=== PATIENT | female | born 1970 | race Caucasian/White ===

== ENCOUNTER 2018-10-10 04:14 | Inpatient (IN) | payer OTHER ==
[~2018-10-10] VITALS: Ht 160 cm; Wt 74.8 kg
--- OUTSIDE RECORDS SUMMARY | 2018-10-10 04:17 | XMS REPORT ---
Author Author [facility] Address Unknown Phone Unavailable Care Team Providers Care Tier In Name Role Phone Unavailable Unavailable Payers Payer Name Policy Type Policy Number Effective Date Expiration Date Problems This patient has no known problems. Allergies, Adverse Reactions, Alerts Allergy Name Allergy Type Status Severity Reaction(s) Onset Date Inactive Date Treating Clinician Comments No Known Allergies DA Active U 2018-07-06 00:00:00 Medications This patient has no known medications. Results Test Description Test Time Test Comments Text Results Atomic Results Result Comments GLUBED 2018-07-08 11:35:00 GLUBED (test code=GLUBED) 96 mg/dL 74-106 Performed by certified emergency operator at [facility] [id number] 08:46:00* Test Item Value Reference Range Comments GLUBED (test code=GLUBED) 223 mg/dL 74-106 Performed by certified emergency operator at [facility] [id number] 20:41:00* Test Item Value Reference Range Comments GLUBED (test code=GLUBED) 113 mg/dL 74-106 Performed by certified emergency operator at [facility] [id number] 17:12:00* Test Item Value Reference Range Comments GLUBED (test code=GLUBED) 241 mg/dL 74-106 Performed by certified emergency operator at [facility] [id number] 11:29:00* Test Item Value Reference Range Comments GLUBED (test code=GLUBED) 72 mg/dL 74-106 Performed by certified emergency operator at [facility] - XR ABDOMEN [id number] 09:24:00 FAX: Kimberly Hyatt MD [phone] [place]: B St: ADM FAX: Savage Lemons MD Name: KORI PALACIOS [facility] : 1970 Age/S: 48/F [address] [facility] Unit #: [id number] Loc: V[address] [place] [address] Phys: Layo Wheatley MD Acct: [id number] Dis Date: Status: ADM IN PHONE #: [phone] Exam Date: 07/07/2018910 FAX #: [phone] Reason: small bowel obstruction EXAMS: CPT CODE: [id number] XR ABDOMEN 2V 94770 HISTORY: Small bowel obstruction. COMPARISON: CT a bdomen and pelvis from previous day. Moderate distention of the sm all bowel loops in the upper abdomen. Air is noted in the colon. These fin dings suggest improving partial or incomplete obstruction. Phleboliths. IMPRESSION: Decreasing distention of the small b owel may suggest improving partial or incomplete small bowel obstruction . Follow-up. Electronically Signed by Alva Davenport on 9 at 0924 Reported and signed by: Tin Davenport M.D. CC: Kimberly Saldaña; Savage Lemons MD Technologist: Nicole Malagon RT(R) Trnscrd Date/Time/By: 07/07/2018 (923) : By: [email or web address] Orig Print D/T: S: 03/2019 (926) PAGE 1 Signed Repo rt [id number] 08:55:00* Test Item Value Reference Range Comments GLYCOSYLATED HEMOGLOBIN (HA1C) (test code=GLYHGB) 13.8 % HbA1 4.8-6.0 ESTIMATED AVERAGE GLUCOSE (test code=EAG) 349 MG/DL BASIC METABOLIC [id number] 08:26:00* Test Item Value Reference Range Comments SODIUM (test code=NA) 139 mmol/L 136-145 POTASSIUM (test code=K) 4.0 mmol/L 3.5-5.1 CHLORIDE (test code=CL) 111.0 mmol/L 98-107 CARBON DIOXIDE (test code=CO2) 21.0 mmol/L 21-32 ANION GAP (test code=GAP) 11.0 10-20 GLUCOSE (test code=GLU) 183 mg/dL 74-106 BLOOD UREA NITROGEN (test code=BUN) 5 mg/dL 7-18 GLOMERULAR FILTRATION RATE (test code=GFR) > 60 mL/min >=60 Estimated GFR by using Modified MDRD formula.Chronic kidney disease is defined as either kidney damageor GFR <60 mL/min/1.73 m2 for >3 months. CREATININE (test code=CREAT) 0.50 mg/dL 0.55-1.02 Note change in reference range due to change in reagent. BUN/CREATININE RATIO (test code=BUN/CREA) 10.0 10-20 CALCIUM (test code=CA) 8.0 mg/dL 8.5-10.1 [id number] 08:26:00* Test Item Value Reference Range Comments MAGNESIUM (test code=MAG) 1.6 mg/dL 1.8-2.4 CBC W/AUTO [id number] 08:14:00* Test Item Value Reference Range Comments WHITE BLOOD CELL (test code=WBC) 6.5 K/mm3 4.5-12.5 RED BLOOD CELL (test code=RBC) 3.95 mill/mm3 3.7-5.2 HEMOGLOBIN (test code=HGB) 11.6 gram/dL 11.5-15.5 RESULT VERIFIED BY REPEAT ANALYSIS HEMATOCRIT (test code=HCT) 35.4 % 36.0-46.0 MEAN CELL VOLUME (test code=MCV) 89.6 fL 80-98 MEAN CELL HGB (test code=MCH) 29.4 picogram 27.0-33.0 MEAN CELL HGB CONCETRATION (test code=MCHC) 32.8 gram/dL 33.0-36.0 RED CELL DISTRIBUTION WIDTH (test code=RDW) 11.8 % 11.6-16.2 RED CELL DISTRIBUTION WIDTH SD (test code=RDW-SD) 38.4 fL 37.0-51.0 PLATELET COUNT (test code=PLT) 289 K/mm3 150-450 MEAN PLATELET VOLUME (test code=MPV) 11.3 fL 6.7-11.0 NEUTROPHIL % (test code=NT%) 37.5 % 39.0-69.0 IMMATURE GRANULOCYTE % (test code=IG%) 0.6 % 0.0-5.0 LYMPHOCYTE % (test code=LY%) 50.9 % 25.0-55.0 MONOCYTE % (test code=MO%) 7.6 % 0.0-10.0 EOSINOPHIL % (test code=EO%) 2.5 % 0.0-5.0 BASOPHIL % (test code=BA%) 0.9 % 0.0-1.0 NUCLEATED RBC % (test code=NRBC%) 0.0 % 0-0 NEUTROPHIL # (test code=NT#) 2.43 K/mm3 1.8-7.7 IMMATURE GRANULOCYTE # (test code=IG#) 0.04 x10 3/uL 0-0.03 LYMPHOCYTE # (test code=LY#) 3.30 K/mm3 1.0-5.0 MONOCYTE # (test code=MO#) 0.49 K/mm3 0-0.8 EOSINOPHIL # (test code=EO#) 0.16 K/mm3 0.0-0.5 BASOPHIL # (test code=BA#) 0.06 K/mm3 0.0-0.2 NUCLEATED RBC # (test code=NRBC#) 0.00 K/mm3 0.0-0.1 MANUAL DIFF REQUIRED (test code=MDIFF) NO [id number] 07:50:00* Test Item Value Reference Range Comments GLUBED (test code=GLUBED) 224 mg/dL 74-106 Performed by certified emergency operator at [facility] [id number] 21:15:00* Test Item Value Reference Range Comments GLUBED (test code=GLUBED) 270 mg/dL 74-106 Performed by certified emergency operator at [facility] [id number] 16:06:00* Test Item Value Reference Range Comments GLUBED (test code=GLUBED) 132 mg/dL 74-106 Performed by certified emergency operator at [facility] URINALYSIS [id number] 11:21:00* Test Item Value Reference Range Comments UA COLOR (test code=COLU) STRAW YELLOW UA APPEARANCE (test code=APPU) CLEAR CLEAR UA GLUCOSE DIPSTICK (test code=DGLUU) 1000(3+) mg/dL NEGATIVE UA BILIRUBIN DIPSTICK (test code=BILU) NEGATIVE mg/dL NEGATIVE UA KETONE DIPSTICK (test code=KETU) neg mg/dL NEGATIVE UA SPECIFIC GRAVITY (test code=SGU) 1.005 1.001-1.035 UA BLOOD DIPSTICK (test code=SELINA) neg Ravi/uL NEGATIVE UA PH DIPSTICK (test code=CARLOS) 5.0 5.0-8.0 UA PROTEIN DIPSTICK (test code=PROU) neg mg/dL Neg-15 UA UROBILINIOGEN DIPSTICK (test code=URO) norm mg/dL 0.0-0.2 UA NITRITE DIPSTICK (test code=JENNIFER) NEGATIVE NEGATIVE UA LEUKOCYTE ESTERASE DIPSTICK (test code=LEUU) 25 (Trace) uL NEGATIVE UA WBC (test code=WBCU) 3-5 per HPF 0-5 IN SOME URINARY TRACT INFECTIONS THERE MAY NOT BE ENOUGHWBCs IN THE URINE TO TRIGGER AN AUTOMATIC (REFLEX) URINECULTURE. A SEPERATE ORDER FOR URINE CULTURE IS RECOMMENDEDIF THERE IS STRONG SUPPORT FOR A URINARY TRACT INFECTIONCLINICALLY. UA RBC (test code=RBCU) 0-3 per HPF 0-5 UA EPITHELIAL CELLS (test code=EPIU) FEW per HPF Few UA BACTERIA (test code=BACU) FEW per HPF NONE Urine Source? Clean CatchUR HCG [id number] 11:21:00* Test Item Value Reference Range Comments UR HCG QUAL (test code=HCGQLU) NEGATIVE This HCGQL test is NOT applicable for MALE patients.Check with nurse about probable order error.If Tumor Marker Test needed, nurse should order test "HCGTU"(Test #550.05161) Urine Source? Clean CatchURINALYSIS [id number] 11:13:00* Test Item Value Reference Range Comments UA COLOR (test code=COLU) STRAW YELLOW UA APPEARANCE (test code=APPU) CLEAR CLEAR UA GLUCOSE DIPSTICK (test code=DGLUU) 1000(3+) mg/dL NEGATIVE UA BILIRUBIN DIPSTICK (test code=BILU) NEGATIVE mg/dL NEGATIVE UA KETONE DIPSTICK (test code=KETU) neg mg/dL NEGATIVE UA SPECIFIC GRAVITY (test code=SGU) 1.005 1.001-1.035 UA BLOOD DIPSTICK (test code=SELINA) neg Ravi/uL NEGATIVE UA PH DIPSTICK (test code=CARLOS) 5.0 5.0-8.0 UA PROTEIN DIPSTICK (test code=PROU) neg mg/dL Neg-15 UA UROBILINIOGEN DIPSTICK (test code=URO) norm mg/dL 0.0-0.2 UA NITRITE DIPSTICK (test code=JENNIFER) NEGATIVE NEGATIVE UA LEUKOCYTE ESTERASE DIPSTICK (test code=LEUU) 25 (Trace) uL NEGATIVE UA WBC (test code=WBCU) per HPF 0-5 Urine Source? Clean CatchUR HCG [id number] 11:13:00* Test Item Value Reference Range Comments UR HCG QUAL (test code=HCGQLU) NEGATIVE This HCGQL test is NOT applicable for MALE patients.Check with nurse about probable order error.If Tumor Marker Test needed, nurse should order test "HCGTU"(Test #550.91823) Urine Source? Clean CatchURINALYSIS [id number] 11:10:00* Test Item Value Reference Range Comments UA COLOR (test code=COLU) STRAW YELLOW UA APPEARANCE (test code=APPU) CLEAR CLEAR UA GLUCOSE DIPSTICK (test code=DGLUU) 1000(3+) mg/dL NEGATIVE UA BILIRUBIN DIPSTICK (test code=BILU) NEGATIVE mg/dL NEGATIVE UA KETONE DIPSTICK (test code=KETU) neg mg/dL NEGATIVE UA SPECIFIC GRAVITY (test code=SGU) 1.005 1.001-1.035 UA BLOOD DIPSTICK (test code=SELINA) neg Ravi/uL NEGATIVE UA PH DIPSTICK (test code=CARLOS) 5.0 5.0-8.0 UA PROTEIN DIPSTICK (test code=PROU) neg mg/dL Neg-15 UA UROBILINIOGEN DIPSTICK (test code=URO) norm mg/dL 0.0-0.2 UA NITRITE DIPSTICK (test code=JENNIFER) NEGATIVE NEGATIVE UA LEUKOCYTE ESTERASE DIPSTICK (test code=LEUU) 25 (Trace) uL NEGATIVE UA WBC (test code=WBCU) per HPF 0-5 Urine Source? Clean CatchUR HCG [id number] 11:10:00* Test Item Value Reference Range Comments UR HCG QUAL (test code=HCGQLU) Urine Source? Clean Catch- CT ABD PELVIS [id number] 10:22:00 Name: PALACIOSKORI HAGEN [facility] : 1970 Age/S: 48 / F [address] [facility] Unit #: [id number] Loc: [place] [address] Phys: Jamie Gibbs MD Acct: [id number] Di s Date: Status: REG ER PHONE #: [phone] Exam Date: 07/06/2018 1015 FAX #: Reason: LLQ pain EXAMS: CPT CODE: [id number] CT ABD PELVIS W/CONT 22988 HISTORY: Left lower quadr ant pain. COMPARISON: None available. CT abdomen and pelvis with IV contrast: 100 mL of Isovue 370. Automated exposure control. CT abdomen: The lung bases are clear. The liver is enhancing homogeneously. Gallbladder is without radiopaque stones. Unremarkable spleen and the stomach distends incompletely however it is normal in appearance. Pancreas enhances homoge neously. Unremarkable adrenals. Kidneys are free from hydrouretero nephrosis. Heterogeneous enhancement may suggest pyelonephritis, greater o n the right. Bilateral excretion. No perinephric collections. No pathologic adenopathy. Well-opacified abdominal and pelvic vasculatur e. Mild atherosclerotic change. Moderate distention of the small b owel with fluid and air. Zone of transition in the distal jejunum best dem onstrated on image #42 on the early phase towards the right of the midline . Decompressed ileum. Fluid-filled large bowel as well. No inflammatory ch shauna. CT PELVIS: The appendix is normal. Pelvic bessie l loops are again demonstrating fluid distention of the small bowel. The t erminal and distal ileum is collapsed. No mass noted in the zone transitio n. These findings may suggest partial or incomplete distal small bowel obs truction. Unremarkable well-distended urinary bladder. The uterus is within normal limits. Ovaries are poorly visible. No free fluid or free air or abscess. No pelvic pathologic adenopathy. Subcutaneo us tissues and the musculature posterior mild inflammatory change along th e anterior right lower abdominal wall just cranial to the level of the umb ilicus. Correlate for cellulitis. No drainable PAGE 1 Signed Report (CONTINUED) Name: PHILIPKORI Emilio [facility] : 1970 Age/S: 48 / F [address] [facility] Unit #: [id number] Loc: [place] [address] Phys: Antoni Gibbs MD Acct: [id number] Dis Date: Status: REG ER PHONE #: [phone] Exam Date: 019 1015 FAX #: [phone] Reason: LLQ pain EXAMS: CPT CODE: [id number] CT ABD PELVIS W/CONT 47511 <Continued> abscess identified. No lytic or blastic lesions are noted within the bony skeleton. DJD. IMPRESSION: Moderate distention of the proximal small bowel with air-fluid level with zone of transition within the distal ileum and proximal jejunum best demonstrated on image 42 of the early sequence towards the right of the midline. No mass is noted. These findings may suggest partial or incomplete small bowel obstruction. Fluid distention of the large bowel with no inflammation. No zone of transition within the large bowel. Appendix is normal. No free fluid or free air or abscess. Heterogeneous enhancement of the kidneys may suggest pyelonephritis. Correlate with urinalysis. Bilateral excretion is noted. The urinary bladder is unremarkable. No pathologic adenopathy. Mild cellulitis suspected along the anterior right lower abdominal wall just cranial to the level of the umbilicus. at 1022 Reported and signed by: Tin Davenport M.D. CC: Antoni Gibbs MD Technologist:Aisha Garibay CTDI: DLP: Trnscb Date/Time: 07/06/2018 (0415) [email or web address] Orig Print D/T: S: 07/06/2018 (2162) CTDI: DLP: PAGE 2 Signed Report COMPREHENSIVE METABOLIC [id number] 09:44:00* Test Item Value Reference Range Comments SODIUM (test code=NA) 135 mmol/L 135-148 POTASSIUM (test code=K) 4.9 mmol/L 3.5-5.1 CHLORIDE (test code=CL) 104 mmol/L 101-109 CARBON DIOXIDE (test code=CO2) 20.5 mmol/L 21-32 ANION GAP (test code=GAP) 15 mmol/L 10-20 GLUCOSE (test code=GLU) 398 mg/dL 74-106 BLOOD UREA NITROGEN (test code=BUN) 13 mg/dL 3-21 CREATININE (test code=CREAT) 0.73 mg/dL 0.55-1.3 BUN/CREATININE RATIO (test code=BUN/CREA) 17.8 10-20 TOTAL PROTEIN (test code=PROT) 6.7 g/dL 6.5-8.4 ALBUMIN (test code=ALB) 3.2 g/dL 3.4-4.8 GLOBULIN (test code=GLOB) 3.5 G/DL 1-10 ALBUMIN/GLOBULIN RATIO (test code=A/G) 0.9 RATIO 0.75-1.50 CALCIUM (test code=CA) 8.6 mg/dL 8.4-10.2 BILIRUBIN TOTAL (test code=BILT) 0.40 mg/dL 0.0-1.0 SGOT/AST (test code=AST) 14 U/L 6-32 SGPT/ALT (test code=ALT) 24 U/L 12-78 Note: Change in REFERENCE RANGE due to new reagent method. ALKALINE PHOSPHATASE TOTAL (test code=ALKP) 88 U/L 38-126 [id number] 09:44:00* Test Item Value Reference Range Comments LIPASE (test code=LIP) 252 U/L 128-270 CBC W/AUTO [id number] 09:27:00* Test Item Value Reference Range Comments WHITE BLOOD CELL (test code=WBC) 10.8 K/mm3 4.5-12.5 RED BLOOD CELL (test code=RBC) 4.60 mill/mm3 3.7-5.2 HEMOGLOBIN (test code=HGB) 13.6 gram/dL 11.5-15.5 HEMATOCRIT (test code=HCT) 41.0 % 36.0-46.0 MEAN CELL VOLUME (test code=MCV) 89.1 fL 80-98 MEAN CELL HGB (test code=MCH) 29.6 picogram 27.0-33.0 MEAN CELL HGB CONCETRATION (test code=MCHC) 33.2 gram/dL 33.0-36.0 RED CELL DISTRIBUTION WIDTH (test code=RDW) 12.2 % 11.6-16.2 RED CELL DISTRIBUTION WIDTH SD (test code=RDW-SD) 38.9 fL 39.1-52.0 PLATELET COUNT (test code=PLT) 312 K/mm3 150-450 MEAN PLATELET VOLUME (test code=MPV) 10.7 fL 6.7-11.0 NEUTROPHIL % (test code=NT%) 61.6 % 39.0-69.0 LYMPHOCYTE % (test code=LY%) 28.9 % 25.0-55.0 MONOCYTE % (test code=MO%) 7.5 % 0.0-10.0 EOSINOPHIL % (test code=EO%) 1.4 % 0.0-5.0 BASOPHIL % (test code=BA%) 0.6 % 0.0-1.0 NEUTROPHIL # (test code=NT#) 6.64 K/mm3 1.8-7.7 LYMPHOCYTE # (test code=LY#) 3.11 K/mm3 1.0-5.0 MONOCYTE # (test code=MO#) 0.81 K/mm3 0-0.8 EOSINOPHIL # (test code=EO#) 0.15 K/mm3 0.0-0.5 BASOPHIL # (test code=BA#) 0.06 K/mm3 0.0-0.2 MANUAL DIFF REQUIRED (test code=MDIFF) NO
[2018-10-10 04:26] LABS: BASOPHILS # (AUTO) 0.1 (0.0-0.1); BASOPHILS % 0.6 % (0.0-1.0); EOSINOPHILS # (AUTO) 0.2 (0.0-0.4); EOSINOPHILS % 1.7 % (0.0-6.0); HEMATOCRIT 36.9 % (34.2-44.1); HEMOGLOBIN 12.4 g/dL (12.0-16.0); LYMPHOCYTES # (AUTO) 3.1 (1.0-3.2); LYMPHOCYTES % 22.3 % (18.0-39.1); MEAN CORPUSCULAR HEMOGLOBIN 29.5 pg (28-32); MEAN CORPUSCULAR HGB CONC 33.6 g/dL (31-35); MEAN CORPUSCULAR VOLUME 87.9 fL (81-99); MONOCYTES # (AUTO) 0.8 (0.2-0.8); MONOCYTES % 5.8 % (4.4-11.3); NEUTROPHILS # (AUTO) 9.6 (2.1-6.9); NEUTROPHILS % 68.8 % (38.7-80.0); PLATELET COUNT 357 x10e3/uL (140-360); RED CELL DISTRIBUTION WIDTH 12.8 % (11.7-14.4)
--- NOTE | 2018-10-10 04:37 | NUR ---
PT AMBULATED TO RESTROOM, WHEN BACK TO ROOM SPO2 WAS 85%, PLACED ON 2L NC, SPO2 UP TO 98%. MD STEVEN
[2018-10-10 04:46] LABS: INR 0.77; PROTHROMBIN TIME 11.2 seconds (11.9-14.5)
[2018-10-10 04:47] LABS: PARTIAL THROMBOPLASTIN TIME 22.5 seconds (23.8-35.5)
[2018-10-10 04:49] LABS: ALANINE AMINOTRANSFERASE 22 IU/L (0-55); ALBUMIN 3.2 g/dL (3.5-5.0); ALKALINE PHOSPHATASE 72 IU/L (40-150); ANION GAP 14.1 mmol/L (8-16); BLOOD UREA NITROGEN 12 mg/dL (7-26); BUN/CREATININE RATIO 16 (6-25); CALCIUM 9.9 mg/dL (8.4-10.2); CARBON DIOXIDE 26 mmol/L (22-29); CHLORIDE 102 mmol/L (98-107); CREATINE KINASE 39 IU/L (29-168); CREATININE, SERUM 0.76 mg/dL (0.57-1.11); EST GLOMERULAR FILTRATION RATE > 60 ML/MIN (60-); GLUCOSE 270 mg/dL (74-118); POTASSIUM 4.1 mmol/L (3.5-5.1); SODIUM 138 mmol/L (136-145)
[2018-10-10 04:56] LABS: CREATINE KINASE MB < 1.00 ng/mL (0-4.3)
--- NOTE | 2018-10-10 04:56 | Diagnostic Imaging Report ---
EXAMINATION: CHEST SINGLE (PORTABLE) INDICATION: SOB, HURTS TO BREATH COMPARISON: None FINDINGS: TUBES and LINES: None. LUNGS: Lungs are not well inflated. Mild perihilar, peribronchial thickening and perihilar streaky densities may reflect viral infection versus reactive airway disease. However, pulmonary venous congestion and early edema can have this appearance in the proper clinical setting. PLEURA: No pleural effusion or pneumothorax. HEART AND MEDIASTINUM: The cardiomediastinal silhouette is unremarkable. BONES AND SOFT TISSUES: No acute osseous lesion. Soft tissues are unremarkable. UPPER ABDOMEN: No free air under the diaphragm. IMPRESSION: Findings may reflect a viral infection versus reactive airway disease. However, pulmonary venous congestion and early edema can have this appearance in the proper clinical setting. Signed by: Dr. Didi Orosco M.D. on 10/10/2018 4:53 AM
[2018-10-10 05:15] LABS: CLARITY,URINE CLEAR (CLEAR); COLOR,URINE YELLOW (YELLOW); LEUKOCYTE ESTERASE ,URINE NEGATIVE (NEGATIVE); NITRITE,URINE NEGATIVE (NEGATIVE); PROTEIN,URINE DIPSTICK NEGATIVE (NEGATIVE)
[2018-10-10 05:16] LABS: KETONES,URINE NEGATIVE (NEGATIVE)
[2018-10-10 05:17] LABS: AMPHETAMINES SCREEN,URINE NEGATIVE (NEGATIVE); BENZODIAZEPINES SCREEN,URINE NEGATIVE (NEGATIVE); BILIRUBIN,URINE NEGATIVE (NEGATIVE); PHENCYCLIDINE SCREEN,URINE NEGATIVE (NEGATIVE); URINE UROBILINOGEN 0.2 mg/dL (0.2 - 1)
[2018-10-10 05:29] LABS: BACTERIA,URINE FEW /HPF
[2018-10-10 05:30] LABS: EPITHELIAL CELLS,URINE MANY /LPF
[2018-10-10] MEDS ORDERED: SODIUM CHLORIDE 0.9% 50ML 50 ML ONE (05:31)
[2018-10-10] MEDS ORDERED: IOPAMIDOL 370 MG/ML 200 ML INFUS..BTL INJ ONE (05:31)
--- NOTE | 2018-10-10 06:18 | Diagnostic Imaging Report ---
EXAM: CT Chest WITH contrast 10/10/2018 4:36 AM INDICATION: Pulmonary embolism. Shortness of breath and chest pain. COMPARISON: None TECHNIQUE: Chest was scanned utilizing a multidetector helical scanner from the lung apex through the level of the adrenal glands without administration of IV contrast. Coronal and sagittal reformations were obtained. Pulmonary embolism protocol was performed. IV CONTRAST: 100 cc Isovue 370 RADIATION DOSE: Total DLP: 494.64 mGy*cm Estimated effective dose: (DLP x 0.014 x size factor) mSv COMPLICATIONS: None FINDINGS: LINES/ TUBES: None. LUNGS AND AIRWAYS: No filling defects within the pulmonary arteries to the resolved segmental level. There is diffuse thickening of the pulmonary interstitium, sutured with patchy groundglass densities, particularly in the lower lobes. There is also prominence of the pulmonary interstitium. PLEURA: Bilateral small pleural effusions, left greater than right. HEART AND MEDIASTINUM: The thyroid gland is normal. Prominent lower mediastinal lymph nodes may be reactive. Mildly prominent bilateral axillary lymph nodes, however, not significantly enlarged by CT criteria.. There is soft tissue attenuation in the subcarinal region, anterior to the esophagus which may reflect esophageal thickening, or enlarged subcarinal lymph nodes. There is also increased lymph tissue in the bilateral hilar region. The heart is normal in size.. There is no pericardial effusion. UPPER ABDOMEN: Limited non-contrast views of the upper abdomen show no abnormality within the visualized liver, spleen, pancreas, or kidneys. The adrenal glands are normal. BONES: The visualized bony thorax is within normal limits. SOFT TISSUES: Unremarkable. IMPRESSION: 1. Findings consistent with pulmonary venous congestion and interstitial edema in the proper clinical setting. Bilateral small pleural effusions. 2. No pulmonary embolism. 3. Mediastinal lymphadenopathy may be reactive. Recommend follow-up to document resolution. Signed by: Dr. Didi Orosco M.D. on 10/10/2018 6:14 AM
[2018-10-10] MEDS ORDERED: VITAMIN D250000 UNIT PO (06:34)
[2018-10-10] MEDS ORDERED: HUMALOG100 UNIT/3 (06:34)
[2018-10-10] MEDS ORDERED: LANTUS 3ML100 UNITS/ SC (06:34)
[2018-10-10] MEDS ORDERED: LYRICA150 MG PO (06:34)
[2018-10-10] MEDS ORDERED: FUROSEMIDE INJ 10 MG/ML 4 ML VIAL IV ONE (06:45)
[2018-10-10] MEDS ORDERED: DEXTROSE 50% SYRINGE 50 ML IV PRN (06:45)
--- NOTE | 2018-10-10 06:54 | NUR ---
report to usha fish
[2018-10-10] MEDS: AZITHROMYCIN 500MG/NS 250 ML 250 ML IV SCH (07:21)
[2018-10-10] MEDS: INSULIN REGULAR, HUMAN 100 UNIT/1 ML 3ML VIAL SQ SCH ×4 (07:33→22:18)
--- NOTE | 2018-10-10 07:48 | NUR ---
RCD PT FROM ER BY WHEEL CHAIR PT IS ALERT AND ORIENTED PT RESTING ON BED NO SIGNS OF ANY DISTRESS NOTED VITALS CHECKED ADMISSION ASSESSMENT DONE PT ON O2 4L BY NC PT C/O COUGH AND CHEST DISCOMFORT PT HAD BOWEL MOVEMENT AND VOIDED ,IV PATENT BY SALINE FLUSH INSTRUCTED PT REGARDING HOSPITAL POLICY AND ROUTINE BED LOW AND LOCKED CALL LIGHT IN REACH
[2018-10-10] MEDS ORDERED: FUROSEMIDE INJ 10 MG/ML 4 ML VIAL IV SCH (09:00)
[2018-10-10] MEDS ORDERED: FUROSEMIDE INJ 10 MG/ML 2 ML VIAL IV SCH (09:00)
[2018-10-10 10:17] VITALS: BP 126/65
[2018-10-10 10:27] VITALS: BP 126/65
[2018-10-10 11:42] VITALS: BP 118/63
[2018-10-10] MEDS: CEFTRIAXONE SOD 1 GM/NS 50 ML 50 ML IV SCH (12:00)
[2018-10-10] MEDS: VANCOMYCIN 500MG/NS 0.9% 100ML 100 ML IV SCH (12:00)
[2018-10-10 13:20] LABS: CREATINE KINASE MB 1.2 ng/mL (0-5.0)
[2018-10-10] MEDS ORDERED: MAGNESIUM/ALUMINUM/SIMETHICONE 30 ML UDC PO PRN (13:45)
[2018-10-10] MEDS ORDERED: MAGNESIUM HYDROXIDE 30 ML UDC PO PRN (13:45)
[2018-10-10] MEDS ORDERED: ACETAMINOPHEN 325 MG TAB PO PRN (13:45)
[2018-10-10 16:58] VITALS: BP 125/69
--- NOTE | 2018-10-10 19:19 | NUR ---
PT RESTING ON BED BED SIDE REPORT GIVEN TO ONCOMING NURSE
--- NOTE | 2018-10-10 19:29 | Consultation ---
DATE OF CONSULTATION: 10/10/2018 Pulmonary Consultation HISTORY OF PRESENT ILLNESS: The patient is seen many years ago, apparently followed by Dr. Roca for an empyema requiring decortication by Dr. Roca. She has had a cough, had a low-grade fever of 99.4. History of meningitis at age 15, history of diabetes at age 24. ALLERGIES: NO KNOWN ALLERGIES. MEDICATIONS: Include Lyrica and insulin. SOCIAL HISTORY: Works as an cobol engineer. Nonsmoker. No alcohol use. PAST SURGICAL HISTORY: She has had decortication, meniscectomies both knees, uterine ablation. FAMILY HISTORY: Positive for coronary disease. PHYSICAL EXAMINATION: GENERAL: She is a well-developed white female, in no acute distress. VITAL SIGNS: Temperature 99.4, pulse 114, blood pressure 118/80. HEAD: Normocephalic, atraumatic. EYES: Extraocular movements intact. LUNGS: Few rales. HEART: Regular rhythm. ABDOMEN: Nontender. EXTREMITIES: Nonedematous. IMPRESSION: Community-acquired pneumonia and a history of diabetes with broad-spectrum antibiotics pending results of culture. In view of her history of meningitis and recurrent pneumonias, would consider Thank you for this kind referral. MD CINDY Reyna/MODL /[id number]
[2018-10-10 20:00] VITALS: BP 134/74
--- NOTE | 2018-10-10 20:56 | NUR ---
Patient states neuropathy, Dr. NABILA arellano.
[2018-10-10 21:00] VITALS: BP 134/74
[2018-10-10] MEDS ORDERED: INSULIN GLARGINE 100 UNITS/ML VIAL SQ SCH (21:00)
--- NOTE | 2018-10-10 21:14 | NUR ---
Dr. Gilbert paged again for patients concerns.
--- NOTE | 2018-10-10 21:20 | NUR ---
Got an order for neurotin 300mg one time.
[2018-10-10] MEDS ORDERED: GABAPENTIN 300 MG CAP PO STA (21:27)
--- NOTE | 2018-10-10 21:29 | Consultation ---
DATE OF CONSULTATION: 10/10/2018 CARDIOLOGY CONSULTATION REASON FOR CONSULTATION: Ms. Brennan is a pleasant 48-year-old white woman with a complex past medical history, who presented to the emergency room overnight with a complaint of shortness of breath. HISTORY OF PRESENT ILLNESS: The patient reports she ran out of her blood pressure medicine a week ago and has been without the lisinopril 20 mg daily. She thinks her blood pressure been a little bit elevated, but overnight she felt herself being short of breath, pressure in her chest, and a little cough and wheezing by her count. PAST MEDICAL HISTORY: Significant for recurring pulmonary problems. She is not certain of any diagnosis, but has been hospitalized for pneumonia twice since she developed an empyema in her chest in 2013 requiring surgical drainage. She has hypertension and she was first diagnosed with type 2 adult onset diabetes at about age 24. She has difficulty telling me all of her medications, but uses Humalog and ran out of the lisinopril 20 mg daily. She reports she did take a water pill sometime in the past, but cannot remember the name, it has not been recently. PERSONAL AND SOCIAL HISTORY: She reports she has never smoked. FAMILY HISTORY: Father had coronary artery disease, treated with coronary bypass graft surgery. REVIEW OF SYSTEMS: CARDIAC: She has never known of any cardiac problem and never been told of any murmur. PHYSICAL EXAMINATION: GENERAL: At this time shows a pleasant woman, who is alert and responsive and talkative. VITAL SIGNS: Blood pressure 118/63, temperature 99.4, and pulse 114. HEAD, EYES, EARS, NOSE, AND THROAT: Unremarkable. NECK: No jugular venous distention. No bruits. THORAX: Heart sounds S1, S2 are equal, slightly rapid, but no murmurs. LUNGS: Relatively clear. There is a healed intercostal incision on the right mid back. ABDOMEN: Protuberant. Normal bowel sounds. EXTREMITIES: No cyanosis, clubbing, or edema. RADIOGRAPHIC DATA: EKG shows sinus tachycardia, cannot rule out anterior scar, however, echocardiogram shows normal left ventricular function, EF 50% to 55% with mild mitral regurgitation. LABORATORY STUDIES: Pertinent laboratory studies on the chart showed glucose 270 and white count 13.8. ASSESSMENTS: 1. Dyspnea may be multifactorial. 2. Pulmonary disease with recurring pneumonias. 3. History of hypertension without any medications for the past week. 4. Type 2 adult onset diabetes. 5. Congestive heart failure with elevated BNP of 176, but echocardiogram showing normal left ventricular function and mild mitral regurgitation. PLAN: We will monitor with you. Watch her blood pressure and volume status. We will plan for her to have Cardiolite on Friday. Thank you for asking me to see her in consultation. MD EDILBERTO Venegas/MODL /[id number] cc: Layo Kamara MD
[2018-10-10] MEDS: FUROSEMIDE INJ 10 MG/ML 4 ML VIAL IV SCH (21:54)
[2018-10-10] MEDS: HEPARIN SOD (PORCINE) 5,000 UNIT/ML VIAL SC SCH (22:04)
[2018-10-11] VITALS (7 sets, daily range): BP systolic 112–147; BP diastolic 60–87
--- NOTE | 2018-10-11 06:28 | Diagnostic Imaging Report ---
EXAMINATION: CHEST SINGLE (PORTABLE) INDICATION: . Bilateral pleural effusions. COMPARISON: . FINDINGS: TUBES and LINES: None. LUNGS: Lungs are not well inflated. There has been some interval decrease in previously present bilateral patchy airspace disease PLEURA: No pneumothorax. Bilateral small pleural effusions. HEART AND MEDIASTINUM: The cardiomediastinal silhouette is unremarkable. BONES AND SOFT TISSUES: No acute osseous lesion. UPPER ABDOMEN: No free air under the diaphragm. IMPRESSION: Some interval decrease in previously present bilateral patchy airspace disease possibly improved pulmonary edema/venous congestion. Recommend continued follow-up to resolution. Signed by: Dr. Didi Orosco M.D. on 10/11/2018 6:25 AM
[2018-10-11 06:48] LABS: BASOPHILS # (AUTO) 0.1 (0.0-0.1); BASOPHILS % 0.5 % (0.0-1.0); EOSINOPHILS # (AUTO) 0.2 (0.0-0.4); HEMATOCRIT 38.7 % (34.2-44.1); HEMOGLOBIN 12.8 g/dL (12.0-16.0); LYMPHOCYTES # (AUTO) 2.7 (1.0-3.2); LYMPHOCYTES % 28.9 % (18.0-39.1); MEAN CORPUSCULAR HEMOGLOBIN 29.1 pg (28-32); MEAN CORPUSCULAR HGB CONC 33.1 g/dL (31-35); MONOCYTES # (AUTO) 0.7 (0.2-0.8); MONOCYTES % 7.3 % (4.4-11.3); NEUTROPHILS # (AUTO) 5.6 (2.1-6.9); NEUTROPHILS % 60.8 % (38.7-80.0); PLATELET COUNT 339 x10e3/uL (140-360); RED CELL DISTRIBUTION WIDTH 12.5 % (11.7-14.4)
--- NOTE | 2018-10-11 07:05 | NUR ---
RCD PT AT BED PT IS ALERT AND RESTING ON BED NO SIGNS PF ANY DISTRESS NOTED IV PATENT BED LOW AND LOCKED CALL LIGHT IN REACH
[2018-10-11 07:07] LABS: ALANINE AMINOTRANSFERASE 17 IU/L (0-55); ALBUMIN 3.1 g/dL (3.5-5.0); ALBUMIN/GLOBULIN RATIO 0.9 (0.8-2.0); ALKALINE PHOSPHATASE 57 IU/L (40-150); ANION GAP 13.7 mmol/L (8-16); BLOOD UREA NITROGEN 10 mg/dL (7-26); BUN/CREATININE RATIO 14 (6-25); CARBON DIOXIDE 27 mmol/L (22-29); CHLORIDE 99 mmol/L (98-107); CREATININE, SERUM 0.72 mg/dL (0.57-1.11); EST GLOMERULAR FILTRATION RATE > 60 ML/MIN (60-); GLUCOSE 324 mg/dL (74-118); POTASSIUM 3.7 mmol/L (3.5-5.1); SODIUM 136 mmol/L (136-145)
[2018-10-11] MEDS: AZITHROMYCIN 500MG/NS 250 ML 250 ML IV SCH (07:15)
--- NOTE | 2018-10-11 07:29 | NUR ---
Patient endorsed to next shift for continuity of care.
[2018-10-11] MEDS: INSULIN REGULAR, HUMAN 100 UNIT/1 ML 3ML VIAL SQ SCH (07:30)
[2018-10-11] MEDS: HEPARIN SOD (PORCINE) 5,000 UNIT/ML VIAL SC SCH ×3 (09:00→21:00)
[2018-10-11] MEDS: FUROSEMIDE INJ 10 MG/ML 4 ML VIAL IV SCH ×2 (09:00→20:25)
[2018-10-11] MEDS: PREGABALIN 75 MG CAP PO SCH ×3 (10:00→20:25)
[2018-10-11] MEDS: INSULIN LISPRO 100 UNIT/1 ML 3ML VIAL SQ SCH ×2 (11:30→16:30)
[2018-10-11] MEDS: VANCOMYCIN 500MG/NS 0.9% 100ML 100 ML IV SCH ×3 (12:00→23:58)
[2018-10-11] MEDS: CEFTRIAXONE SOD 1 GM/NS 50 ML 50 ML IV SCH (12:00)
[2018-10-11] MEDS ORDERED: NON-FORMULARY MEDICATION (Pregabalin (Lyrica) 150 MG) PO SCH (15:00)
[2018-10-11 16:14] LABS: CREATINE KINASE MB 0.8 ng/mL (0-5.0)
--- NOTE | 2018-10-11 18:00 | NUR ---
PT GOING TO PROCEDURE ON TOMORROW CONSENT SIGNED
--- NOTE | 2018-10-11 18:42 | NUR ---
PT RESTING ON BED BED SIDE REPORT GIVEN TO ONCOMING NURSE
[2018-10-11] MEDS: ZOLPIDEM TARTRATE 5 MG TAB PO PRN (20:25)
[2018-10-11] MEDS ORDERED: INSULIN GLARGINE 100 UNITS/ML VIAL SQ SCH (21:00)
[2018-10-12] VITALS (7 sets, daily range): BP systolic 110–149; BP diastolic 67–89
[2018-10-12] MEDS: INSULIN LISPRO 100 UNIT/1 ML 3ML VIAL SQ SCH ×3 (07:30→17:00)
[2018-10-12] MEDS: PREGABALIN 75 MG CAP PO SCH ×3 (09:12→20:16)
[2018-10-12] MEDS: FUROSEMIDE INJ 10 MG/ML 4 ML VIAL IV SCH ×2 (09:12→20:16)
[2018-10-12] MEDS: HEPARIN SOD (PORCINE) 5,000 UNIT/ML VIAL SC SCH (09:19)
[2018-10-12] MEDS ORDERED: REGADENOSON 0.4 MG/5 ML SYR IV ONE (09:58)
[2018-10-12] MEDS: CEFTRIAXONE SOD 1 GM/NS 50 ML 50 ML IV SCH (12:25)
[2018-10-12] MEDS: VANCOMYCIN 500MG/NS 0.9% 100ML 100 ML IV SCH (12:54)
[2018-10-12] MEDS: AZITHROMYCIN 500MG/NS 250 ML 250 ML IV SCH (14:00)
--- NOTE | 2018-10-12 14:36 | NUR ---
ATTEMPTED TO COMPLETE DPA, PT GONE IN STRESS TEST, WILL FOLLOWUP
[2018-10-12] MEDS ORDERED: SODIUM CHLORIDE FLUSH 10 ML SYR INJ PRN (17:15)
[2018-10-12] MEDS ORDERED: DIPHENHYDRAMINE HCL 25 MG CAP PO PRN (17:15)
[2018-10-12] MEDS: ALPRAZOLAM 0.5 MG TAB PO PRN (18:29)
--- NOTE | 2018-10-12 19:00 | NUR ---
report received from day nurse. patient is resting comfortably in bed. bed is in lowest position and call sanders is within reach. will continue to monitor patient's plan of care.
--- NOTE | 2018-10-12 20:57 | Myoview Stress Test ---
DATE OF STUDY: 10/12/2018 10:00:00 Stress Test - Treadmill ONLY FINDINGS: The patient had resting perfusion images after injection of 10.7 mCi of technetium-99m Myoview. Later due to inability to exercise, she is given Lexiscan 0.4 mg intravenously and shortly afterwards 30 mCi of technetium-99m Myoview. Perfusion images were taken by rotational tomography. The resting perfusion images are relatively unremarkable, suggesting no evidence of any scar; however, after Lexiscan, the stress images show a small anteroseptal and apical defect that may represent ischemia. There are no other defects noted. Additionally, gated wall motion images were obtained and there appears to be mild septal hypokinesis and calculated ejection fraction of 38%. FINAL IMPRESSIONS: 1. Abnormal Lexiscan Myoview for perfusion. 2. Small anteroseptal and apical defect may represent ischemia. 3. No other defects noted. 4. Abnormal left ventricular function with mild septal hypokinesis and calculated ejection fraction of 38%. MD EDILBERTO Venegas/ANKIT /[id number]
[2018-10-12] MEDS ORDERED: INSULIN GLARGINE 100 UNITS/ML VIAL SQ SCH (21:00)
[2018-10-12] MEDS: ZOLPIDEM TARTRATE 5 MG TAB PO PRN (21:11)
[2018-10-13] VITALS (8 sets, daily range): BP systolic 93–135; BP diastolic 61–90
[2018-10-13] MEDS: VANCOMYCIN 500MG/NS 0.9% 100ML 100 ML IV SCH
[2018-10-13 06:04] LABS: BASOPHILS # (AUTO) 0.1 (0.0-0.1); BASOPHILS % 0.9 % (0.0-1.0); EOSINOPHILS # (AUTO) 0.2 (0.0-0.4); HEMATOCRIT 43.5 % (34.2-44.1); HEMOGLOBIN 14.2 g/dL (12.0-16.0); LYMPHOCYTES # (AUTO) 2.7 (1.0-3.2); MEAN CORPUSCULAR HEMOGLOBIN 28.9 pg (28-32); MEAN CORPUSCULAR HGB CONC 32.6 g/dL (31-35); MEAN CORPUSCULAR VOLUME 88.6 fL (81-99); MONOCYTES # (AUTO) 0.8 (0.2-0.8); MONOCYTES % 9.6 % (4.4-11.3); NEUTROPHILS # (AUTO) 4.2 (2.1-6.9); NEUTROPHILS % 51.9 % (38.7-80.0); PLATELET COUNT 403 x10e3/uL (140-360); RED BLOOD COUNT 4.91 x10e6/uL (3.6-5.1); RED CELL DISTRIBUTION WIDTH 12.3 % (11.7-14.4)
[2018-10-13 06:07] LABS: INR 0.83; PROTHROMBIN TIME 11.9 seconds (11.9-14.5)
[2018-10-13 06:08] LABS: PARTIAL THROMBOPLASTIN TIME 22.1 seconds (23.8-35.5)
[2018-10-13 06:27] LABS: ANION GAP 15.1 mmol/L (8-16); CALCIUM 10.2 mg/dL (8.4-10.2); CREATININE, SERUM 1.18 mg/dL (0.57-1.11); POTASSIUM 4.1 mmol/L (3.5-5.1)
--- NOTE | 2018-10-13 07:05 | NUR ---
report given to morning nurse. patient is resting comfortably in bed. bed is in lowest position and call sanders is within reach.
[2018-10-13 07:14] LABS: CHOL/HDL RATIO 3.4 (3.0-3.6)
--- NOTE | 2018-10-13 08:11 | Diagnostic Imaging Report ---
EXAMINATION: PA and lateral views of the chest. COMPARISON: Single view chest 10/11/2018, chest CT 10/10/2018 CLINICAL HISTORY: Follow-up CHF/pneumonia DISCUSSION: The lungs are well-inflated. Interval resolution of interstitial opacities and small left pleural effusion relative to the examination from 10/11/2018. Persistent minimal linear opacity in the lower lobes compatible with subsegmental atelectasis. Cardiomediastinal contour is otherwise within normal limits. No acute osseous abnormality. IMPRESSION: Near complete resolution of interstitial edema and left pleural effusion relative to 10/11/2018. No new consolidations. Signed by: Dr. Layo Ricketts M.D. on 10/13/2018 8:08 AM
[2018-10-13] MEDS: INSULIN LISPRO 100 UNIT/1 ML 3ML VIAL SQ SCH ×3 (08:30→16:44)
[2018-10-13] MEDS: AZITHROMYCIN 500MG/NS 250 ML 250 ML IV SCH (09:00)
[2018-10-13] MEDS: HEPARIN SOD (PORCINE) 5,000 UNIT/ML VIAL SC SCH ×2 (09:00→21:00)
[2018-10-13] MEDS: FUROSEMIDE INJ 10 MG/ML 4 ML VIAL IV SCH ×2 (09:30→21:58)
[2018-10-13] MEDS: PREGABALIN 75 MG CAP PO SCH ×3 (09:30→21:58)
[2018-10-13] MEDS: CEFTRIAXONE SOD 1 GM/NS 50 ML 50 ML IV SCH (11:53)
[2018-10-13] MEDS: SITAGLIPTIN 100 MG TAB PO SCH (16:43)
--- NOTE | 2018-10-13 19:32 | NUR ---
Patient received lying in bed. AAO x 4. Patient had no complaints of pain. Respirations even and non-labored. Patient instructed about NPO status after midnight for upcoming procedure----Right / Left Catheterization. Patient verbalized understanding. Call light within reach.
[2018-10-13] MEDS: INSULIN GLARGINE 100 UNITS/ML VIAL SQ SCH (21:00)
[2018-10-14] VITALS (13 sets, daily range): BP systolic 104–134; BP diastolic 52–96
[2018-10-14] MEDS: ALPRAZOLAM 0.5 MG TAB PO PRN ×2 (06:12→21:00)
--- NOTE | 2018-10-14 06:14 | NUR ---
Patient complained of waking up with a "panic attack" . Patient was asking for "Ativan" to calm her down as she has had these panic attacks in the past. Dr. Gilbert notified. Dr. Gilbert instructed RN to give Xanax by mouth despite patient's NPO status.
--- NOTE | 2018-10-14 06:54 | NUR ---
Patient resting comfortably. Walking rounds done. Shift report given to oncoming nurse for continuity of care.
[2018-10-14] MEDS: HEPARIN SOD (PORCINE) 5,000 UNIT/ML VIAL SC SCH ×2 (09:00→20:55)
[2018-10-14] MEDS: PREGABALIN 75 MG CAP PO SCH ×3 (09:00→20:52)
[2018-10-14] MEDS: SITAGLIPTIN 100 MG TAB PO SCH ×2 (09:00→20:51)
[2018-10-14] MEDS: INSULIN LISPRO 100 UNIT/1 ML 3ML VIAL SQ SCH ×4 (09:30→20:53)
[2018-10-14] MEDS ORDERED: LORAZEPAM INJ 2 MG/ML VIAL IV ONE ×2 (09:30→15:30)
--- NOTE | 2018-10-14 09:30 | NUR ---
PT IS ON NPO DUE TO PROCEDURE. OKAY TO GIVE INSULIN [address] PER [address]. DAHL
[2018-10-14] MEDS: FUROSEMIDE INJ 10 MG/ML 4 ML VIAL IV SCH ×2 (09:45→20:52)
[2018-10-14] MEDS: CEFTRIAXONE SOD 1 GM/NS 50 ML 50 ML IV SCH (13:17)
[2018-10-14] MEDS ORDERED: MIDAZOLAM HCL 2 MG/2 ML VIAL ONE (14:47)
[2018-10-14] MEDS ORDERED: FENTANYL CITRATE/PF 100MCG/2 ML INJ ONE (14:47)
[2018-10-14] MEDS ORDERED: LIDOCAINE HCL 2% LOCAL 20 ML VIAL ONE ×2 (14:48→15:31)
[2018-10-14] MEDS ORDERED: HEPARIN SOD/SOD CHLORIDE 0 ML ONE (14:48)
[2018-10-14] MEDS ORDERED: IOPAMIDOL 370 MG/ML 200 ML INFUS..BTL INJ ONE ×2 (14:48→15:32)
[2018-10-14] MEDS ORDERED: SODIUM CHLORIDE 0.9% 1000ML 1,000 ML ONE (14:49)
--- NOTE | 2018-10-14 15:29 | NUR ---
PT OFF UNIT FOR PROCEDURE IN SAFE CONDITION. ADMINISTERED ATIVAN PER THE ORDER BY DR. DAHL. PT DENIED FURTHER NEEDS.
[2018-10-14] MEDS ORDERED: HEPARIN SOD/SOD CHLORIDE 2,000 ML ONE (15:31)
[2018-10-14] MEDS ORDERED: HEPARIN SOD (PORCINE) 1000 UNIT/ML 30ML ONE (16:22)
[2018-10-14] MEDS ORDERED: EPTIFIBATIDE 75mg 100ML 100 ML ONE (16:23)
[2018-10-14] MEDS ORDERED: EPTIFIBATIDE 20 ML ONE (16:23)
[2018-10-14] MEDS ORDERED: NITROGLYCERIN/D5W 200 MCG/ML 250 ML ONE (16:25)
--- NOTE | 2018-10-14 16:45 | NUR ---
PT GOING TO ICU AFTER PROCEDURE. TRANSFER REPORT GIVEN TO THE ICU NURSE.
[2018-10-14] MEDS ORDERED: CLOPIDOGREL BISULFATE 75 MG TAB ONE (16:58)
[2018-10-14] MEDS ORDERED: ASPIRIN 325 MG TAB ONE (16:59)
[2018-10-14] MEDS ORDERED: ACETAMINOPHEN 325 MG TAB PO PRN (17:15)
[2018-10-14] MEDS ORDERED: EPTIFIBATIDE 2 MG/1 ML 10ML VIAL IV ONE (17:15)
--- NOTE | 2018-10-14 18:07 | NUR ---
pt instructed on rt leg restriction. she verbalizes and demonstrates understanding of current poc instructions.
[2018-10-14] MEDS: INSULIN GLARGINE 100 UNITS/ML VIAL SQ SCH (20:53)
[2018-10-14] MEDS: ZOLPIDEM TARTRATE 5 MG TAB PO PRN (23:17)
[2018-10-14] MEDS: HYDROCODONE/APAP 5MG-325MG TAB PO PRN (23:57)
[2018-10-15] VITALS (15 sets, daily range): BP systolic 107–154; BP diastolic 63–85
[2018-10-15] MEDS: HYDROCODONE/APAP 5MG-325MG TAB PO PRN ×3 (00:58→13:37)
--- NOTE | 2018-10-15 01:18 | NUR ---
PT CONTINUED TO BE RESTLESS STATING THAT SHE CANNOT GET COMFORTABLE. SHE KEEPS TAKING OFF HER BP CUFF AND OXYGEN SENSOR. NOTIFIED DR DAHL OF THE PT'S COMPLAINT, HE ORDERD XANAX AND NORCO FOR THE PATIENT. WILL CONTINUE TO MONITOR THE PATIENT
[2018-10-15 04:56] LABS: BASOPHILS # (AUTO) 0.1 (0.0-0.1); BASOPHILS % 0.8 % (0.0-1.0); EOSINOPHILS # (AUTO) 0.2 (0.0-0.4); EOSINOPHILS % 2.2 % (0.0-6.0); HEMATOCRIT 40.9 % (34.2-44.1); HEMOGLOBIN 13.7 g/dL (12.0-16.0); LYMPHOCYTES # (AUTO) 4.4 (1.0-3.2); LYMPHOCYTES % 41.1 % (18.0-39.1); MEAN CORPUSCULAR HEMOGLOBIN 28.8 pg (28-32); MEAN CORPUSCULAR HGB CONC 33.5 g/dL (31-35); MEAN CORPUSCULAR VOLUME 86.1 fL (81-99); MONOCYTES # (AUTO) 0.7 (0.2-0.8); MONOCYTES % 6.1 % (4.4-11.3); NEUTROPHILS # (AUTO) 5.2 (2.1-6.9); NEUTROPHILS % 49.3 % (38.7-80.0); PLATELET COUNT 464 x10e3/uL (140-360); RED BLOOD COUNT 4.75 x10e6/uL (3.6-5.1); RED CELL DISTRIBUTION WIDTH 12.5 % (11.7-14.4)
[2018-10-15 05:12] LABS: ANION GAP 15.9 mmol/L (8-16); CALCIUM 9.6 mg/dL (8.4-10.2); POTASSIUM 3.9 mmol/L (3.5-5.1)
[2018-10-15] MEDS: PREGABALIN 75 MG CAP PO SCH ×3 (08:26→21:41)
[2018-10-15] MEDS: FUROSEMIDE INJ 10 MG/ML 4 ML VIAL IV SCH ×2 (08:26→21:41)
[2018-10-15] MEDS: SITAGLIPTIN 100 MG TAB PO SCH ×2 (08:26→16:35)
[2018-10-15] MEDS: ASPIRIN 325 MG TAB PO SCH (08:26)
[2018-10-15] MEDS: CLOPIDOGREL BISULFATE 75 MG TAB PO SCH (08:27)
[2018-10-15] MEDS: HEPARIN SOD (PORCINE) 5,000 UNIT/ML VIAL SC SCH ×2 (08:28→21:41)
[2018-10-15] MEDS ORDERED: ASPIRIN 81 MG CHEW TAB PO ONE (09:30)
[2018-10-15 10:26] LABS: CREATINE KINASE MB 1.6 ng/mL (0-5.0)
[2018-10-15] MEDS: INSULIN LISPRO 100 UNIT/1 ML 3ML VIAL SQ SCH ×2 (11:39→16:38)
[2018-10-15 15:05] LABS: BASOPHILS # (AUTO) 0.1 (0.0-0.1); BASOPHILS % 0.8 % (0.0-1.0); EOSINOPHILS # (AUTO) 0.3 (0.0-0.4); EOSINOPHILS % 2.9 % (0.0-6.0); HEMATOCRIT 35.4 % (34.2-44.1); HEMOGLOBIN 12.1 g/dL (12.0-16.0); LYMPHOCYTES # (AUTO) 3.6 (1.0-3.2); LYMPHOCYTES % 41.8 % (18.0-39.1); MEAN CORPUSCULAR HEMOGLOBIN 29.4 pg (28-32); MEAN CORPUSCULAR HGB CONC 34.2 g/dL (31-35); MEAN CORPUSCULAR VOLUME 86.1 fL (81-99); MONOCYTES # (AUTO) 0.8 (0.2-0.8); MONOCYTES % 9.7 % (4.4-11.3); NEUTROPHILS # (AUTO) 3.8 (2.1-6.9); NEUTROPHILS % 44.2 % (38.7-80.0); PLATELET COUNT 371 x10e3/uL (140-360); RED BLOOD COUNT 4.11 x10e6/uL (3.6-5.1); RED CELL DISTRIBUTION WIDTH 12.4 % (11.7-14.4)
--- NOTE | 2018-10-15 16:21 | Diagnostic Imaging Report ---
EXAMINATION: CT of the abdomen and pelvis without contrast. TECHNIQUE: Spiral CT images of the abdomen and pelvis were performed from the lung bases to the lesser trochanters. No intravenous contrast was given per referring physician request. Coronal and sagittal reformatted images were obtained. COMPARISON: None. CLINICAL HISTORY:Cardiac catheterization, rule out bleeding DISCUSSION: ABSENCE OF INTRAVENOUS CONTRAST DECREASES SENSITIVITY FOR DETECTION OF FOCAL LESIONS AND VASCULAR PATHOLOGY. ABDOMEN/PELVIS: LOWER THORAX: Groundglass opacities with interlobular septal thickening in the lower lobes compatible with mild interstitial edema. No pleural effusions. HEPATOBILIARY:No focal hepatic lesions. No biliary ductal dilation. The gallbladder is normal. SPLEEN: No splenomegaly. PANCREAS: No focal masses or ductal dilatation. ADRENALS: No adrenal nodules. KIDNEYS/URETERS: No hydronephrosis, stones, or solid mass lesions. PELVIC ORGANS/BLADDER: Urinary bladder is unremarkable. Uterus is neutral in position and appears normal. No adnexal mass. PERITONEUM/RETROPERITONEUM: No ascites. No pneumoperitoneum. No inguinal or retroperitoneal hematoma. LYMPH NODES: No intra-abdominal,retroperitoneal, pelvic or inguinal lymphadenopathy. VESSELS: Limited evaluation without intravenous contrast. The abdominal aorta is nonaneurysmal. Atherosclerotic calcification of the infrarenal abdominal aorta. GI TRACT: The large bowel shows no distention or wall thickening. Gas and fecal material is noted throughout. The large bowel is markedly redundant. The appendix is normal. No small bowel dilatation to suggest obstruction. BONES AND SOFT TISSUES: Pressure dressing in the right inguinal region with mild fat stranding along the right common femoral artery and vein. No fluid collection. Subcutaneous stranding along the anterior abdominal wall presumably related to subcutaneous medication injection. IMPRESSION: Changes of recent right common femoral arterial catheterization (by report patient underwent recent cardiac catheterization) without inguinal or retroperitoneal hematoma per clinical query. Mild interstitial pulmonary edema. Signed by: Dr. Layo Ricketts M.D. on 10/15/2018 4:18 PM
[2018-10-15] MEDS ORDERED: SODIUM CHLORIDE 0.9% 1000ML 1,000 ML IV SCH (16:30)
[2018-10-15] MEDS: METHOCARBAMOL 750 MG TAB PO SCH (16:35)
--- NOTE | 2018-10-15 16:39 | NUR ---
Nutrition LOS Note RD Recommendation(s) for Physician / Nutrition Prescription: Rec adding ADA 1800 to cardiac diet Plan of Care:Patient has been screened and assessed for nutrition risk. At this time, the patient does not pose any nutrition risk. No further nutrition intervention is warranted at this time. Will re-evaluate if consulted by medical staff. Nutrition reason for involvement: LOS Primary Dx: 1. Dyspnea may be multifactorial. 2. Pulmonary disease with recurring pneumonias. PMH: DM, HTN RD Assessment: (10/15) 48yo F, who was admitted for dyspnea. Visited pt in the room. Pt reported good appetite. 75-100% meal intake was recorded in chart. No complains of nausea or vomiting. LBM 10/15. Pt denied any chewing or swallowing difficulty. No recent weight loss reported. Malnutrition Evaluation (10/15/2018) The patient does not meet criteria for a specified degree of malnutrition at this time. Will re-evaluate at follow-up as appropriate. Nutrition Care Level: Low Signed by Elsie Rosas, MS, RD, LD
--- NOTE | 2018-10-15 20:30 | NUR ---
Report given to [facility]. Patient transferred to [id number] @[id number] by wheelchair by Mary Powell with stable condition.
--- NOTE | 2018-10-15 20:40 | NUR ---
PT ARRIVED ON THE UNIT AT 2039. PT IS A&OX3. RESPIRATION IS EVEN AND UNLABORED, NO DISTRESS NOTED. BED IN THE LOWEST POSITION, LOCKED, AND CALL LIGHT WITHIN REACH.
[2018-10-15] MEDS: INSULIN GLARGINE 100 UNITS/ML VIAL SQ SCH (21:41)
--- NOTE | 2018-10-15 22:09 | Operative Report ---
DATE OF PROCEDURE: 10/14/2018 SURGEON: Jorden Ly MD PROCEDURE: Cardiac cath report. INDICATION: Shortness of breath and abnormal Cardiolite. PROCEDURE IN DETAIL: The patient was brought to the [facility] in a fasting and partially sedated state. The right groin was prepped and scrubbed and 2% xylocaine. A 6-Albanian sheath was placed in the right common femoral vein and a 4-Albanian sheath in the right common femoral artery. Right heart catheterization performed with pressure measurements and oxygen saturations. The right heart pressures are normal with right atrium of 705 with a mean of 4, saturation of 0.73. The right ventricle is 19/8 with a saturation of 0.73, and the pulmonary artery is 19/7 with a saturation of 0.73. The pulmonary capillary wedge pressure is normal at 405 with a mean of 3. The left ventricle is 140/19 with a saturation of 96.96 and the aorta is 140/79 demonstrating no gradient across the aortic valve. Left heart catheterization performed with a 4-Albanian pigtail and 4-Albanian right and left Fredis catheters. The left ventricular function appears to be abnormal with mild anterior hypokinesis, EF about 40%. The right coronary artery is a dominant vessel with mild tapering in its proximal portion to about 30% stenosis. There is a proximal lesion in the posterior descending about 60% stenosis in the vessel, estimated about 2.5 mm in diameter. The left main is unremarkable as is the small ramus circumflex and OM1 and OM2. The proximal LAD is unremarkable, but in its midportion after the 1st diagonal there is a discrete 99% stenosis. Then, the catheters were removed. The right femoral artery sheath was exchanged for a 6-Albanian sheath, sewn in place. Then using an XB-LAD3 guide, the left main is engaged. The patient is given heparin and Integrilin. The LAD is carefully accessed with an 0.014 Hi-Torque floppy wire and the lesion was dilated with a 2.0 mm balloon, leaving some residual stenosis. The patient was given intracoronary nitroglycerin as well. Then, a 2.25 [employer] Synergy stent was advanced into the lesion and dilated to 11 atmospheres with excellent lumen achievement and with brisk flow. The catheter was removed. The patient was given 600 mg of Plavix and 325 mg aspirin. She has returned to her room in stable condition with no bleeding, no complication. She was hemodynamically stable. FINAL IMPRESSION: 1. Normal right heart pressures. 2. Two-vessel coronary disease with 99% mid LAD, 60% posterior descending, and 30% proximal right coronary artery. 3. Abnormal left ventricular function. 4. Successful angioplasty and stenting of the LAD as above. MD EDILBERTO Venegas/ANKIT /[id number] cc: MD Layo Bloom MD
[2018-10-15] MEDS: ALPRAZOLAM 0.5 MG TAB PO PRN (22:24)
[2018-10-15] MEDS: ZOLPIDEM TARTRATE 5 MG TAB PO PRN (23:04)
[2018-10-16 00:08] VITALS: BP_SYST 124; BP_SYST 164; BP_DIAS 70; BP_DIAS 73
[2018-10-16 04:48] VITALS: BP 127/75
--- NOTE | 2018-10-16 07:00 | NUR ---
received am report from rn. pt is sitting up in bed, no s/s of distress. pt is requesting for snack. call light within reach, bed in lowest position, side rails up.
[2018-10-16 08:28] VITALS: BP 135/80
[2018-10-16 09:25] VITALS: BP 135/80
[2018-10-16] MEDS: HEPARIN SOD (PORCINE) 5,000 UNIT/ML VIAL SC SCH (09:25)
[2018-10-16] MEDS: ASPIRIN 325 MG TAB PO SCH (09:25)
[2018-10-16] MEDS: SITAGLIPTIN 100 MG TAB PO SCH (09:26)
[2018-10-16] MEDS: CLOPIDOGREL BISULFATE 75 MG TAB PO SCH (09:27)
[2018-10-16] MEDS: PREGABALIN 75 MG CAP PO SCH (09:27)
[2018-10-16] MEDS: METHOCARBAMOL 750 MG TAB PO SCH (09:27)
[2018-10-16] MEDS: FUROSEMIDE INJ 10 MG/ML 4 ML VIAL IV SCH (09:35)
[2018-10-16] MEDS: INSULIN LISPRO 100 UNIT/1 ML 3ML VIAL SQ SCH ×2 (10:05→12:20)
[2018-10-16 11:40] VITALS: BP 108/64
[2018-10-16] MEDS: ALPRAZOLAM 0.5 MG TAB PO PRN (12:32)
[2018-10-16] MEDS ORDERED: ASPIRIN325 MG PO (14:00)
[2018-10-16] MEDS ORDERED: SIMVASTATIN20 MG PO (14:00)
[2018-10-16] MEDS ORDERED: PLAVIX75 MG PO (14:00)
[2018-10-16] MEDS ORDERED: JANUVIA100 MG PO (14:00)
--- NOTE | 2018-10-17 04:11 | Discharge Summary ---
DISCHARGE DIAGNOSES: 1. Coronary artery disease, status post PCI. 2. Type 2 diabetes mellitus, better controlled. 3. Diabetic neuropathy. 4. Community-acquired pneumonia, improved. 5. Generalized anxiety disorder. HOSPITAL COURSE: Ms. Brennan is a 48-year-old lady, patient of Dr. Saldaña, who has past medical history significant for type 2 diabetes mellitus, which is poorly controlled. She also has significant problems with peripheral neuropathy because of her uncontrolled diabetes. According to the patient, she has significant family history of coronary artery disease. The patient presented to the emergency department with complaints of increasing shortness of breath that lasted for several hours. She states that there was some hurting in the chest, but she was not clear about chest pain as such. She was concerned that she was having a reoccurrence of symptoms similar to when she had empyema many years ago. Initial workup including a chest x-ray was significant for findings that were reflective of pulmonary venous congestion and possibly early pulmonary edema. An infiltrate could not be ruled out. She underwent a CT scan of the abdomen and pelvis that confirmed the findings of pulmonary venous congestion and interstitial edema. There were bilateral small pleural effusions. There was no evidence of PE. She was admitted to the hospital. Consultations were requested with Cardiology and Pulmonary. She was started on IV antibiotics and a nuclear stress test was requested. The nuclear stress test was abnormal showing a depressed ejection fraction, which was estimated at about 36%. A 2D echocardiogram was estimating the ejection fraction at about 50% to 55%. On the nuclear stress test, there was also significant evidence of likely reversible ischemia. She was scheduled for cardiac catheterization, which was performed by Dr. Ly. There was findings of 2-vessel coronary artery disease. There was a 99% mid LAD lesion. There was a 60% posterior descending and a 30% proximal right coronary artery. There was angioplasty and stenting to the LAD and the patient has steadily improved. She has remained asymptomatic and she is now being discharged home in stable condition. She is given prescriptions for aspirin, clopidogrel, simvastatin, and Januvia has been added to her therapy for diabetes. She is to follow up with her primary care physician, Dr. Saldaña. She is to follow up with her anesthesiology technologist, Dr. Ly. MD NIKOLAY Bloom/ANKIT /[id number]
== END 2018-10-16 15:22 | disposition home or self-care (01) | DRG 246 ==
LOC: ER 04:14 → ERHOLD 06:49 → MED/SURG2 07:58 → ICU 10-14 16:57 → MED/SURG3 10-15 20:15
PROVIDERS: ADMIT Internal Medicine; ATTEND Internal Medicine
PROC: 027034Z Dilation of Coronary Artery, One Artery with Drug-eluting Intraluminal Device, Percutaneous Approach (ICD-10-PCS; principal; 2018-10-10)
PROC: B2111ZZ Fluoroscopy of Multiple Coronary Arteries using Low Osmolar Contrast (ICD-10-PCS; principal; 2018-10-10)
PROC: B2151ZZ Fluoroscopy of Left Heart using Low Osmolar Contrast (ICD-10-PCS; principal; 2018-10-10)
PROC: 4A023N7 Measurement of Cardiac Sampling and Pressure, Left Heart, Percutaneous Approach (ICD-10-PCS; principal; 2018-10-10)
DX: I11.0 Hypertensive heart disease with heart failure (principal); J18.9 Pneumonia, unspecified organism; I25.10 Atherosclerotic heart disease of native coronary artery without angina pectoris; E11.65 Type 2 diabetes mellitus with hyperglycemia; E11.40 Type 2 diabetes mellitus with diabetic neuropathy, unspecified; Z79.4 Long term (current) use of insulin; I50.9 Heart failure, unspecified; D63.8 Anemia in other chronic diseases classified elsewhere; F41.1 Generalized anxiety disorder
CPT/HCPCS: 36415; 71045; 71046; 71260; 74176; 78452; 80048; 80053; 80061; 80307; 81001; 81025; 82550; 82553; 82948; 83880; 84484; 85025; 85379; 85610; 85730; 86162; 87040; 92928; 93005; 93017; 93306; 93451; 93458; 99284; A9502; C1766; C1874; J0456; J0696; J1327; J1644; J1815; J1940; J2001; J2060; J2250; J3370; J7030; Q9967

== ENCOUNTER 2018-10-22 09:50 | Emergency (ER) | payer OTHER ==
[~2018-10-22] VITALS: Ht 160 cm; Wt 74.8 kg
[~2018-10-22 09:50] MED LIST: ASPIRIN325 MG PO; HUMALOG100 UNIT/3; JANUVIA100 MG PO; LANTUS 3ML100 UNITS/ SC; LYRICA150 MG PO; PLAVIX75 MG PO; SIMVASTATIN20 MG PO; VITAMIN D250000 UNIT PO
[2018-10-22 10:43] LABS: BASOPHILS # (AUTO) 0.1 (0.0-0.1); EOSINOPHILS # (AUTO) 0.2 (0.0-0.4); EOSINOPHILS % 2.5 % (0.0-6.0); HEMATOCRIT 36.4 % (34.2-44.1); HEMOGLOBIN 12.1 g/dL (12.0-16.0); LYMPHOCYTES # (AUTO) 3.3 (1.0-3.2); LYMPHOCYTES % 42.9 % (18.0-39.1); MEAN CORPUSCULAR HEMOGLOBIN 29.2 pg (28-32); MEAN CORPUSCULAR HGB CONC 33.2 g/dL (31-35); MEAN CORPUSCULAR VOLUME 87.7 fL (81-99); MONOCYTES # (AUTO) 0.6 (0.2-0.8); MONOCYTES % 7.3 % (4.4-11.3); NEUTROPHILS # (AUTO) 3.5 (2.1-6.9); NEUTROPHILS % 45.9 % (38.7-80.0); PLATELET COUNT 417 x10e3/uL (140-360); RED BLOOD COUNT 4.15 x10e6/uL (3.6-5.1); RED CELL DISTRIBUTION WIDTH 12.7 % (11.7-14.4)
[2018-10-22] MEDS ORDERED: LORAZEPAM INJ 2 MG/ML VIAL IV NR (10:45)
[2018-10-22 11:01] LABS: ALANINE AMINOTRANSFERASE 15 IU/L (0-55); ALBUMIN 3.4 g/dL (3.5-5.0); ALBUMIN/GLOBULIN RATIO 1.1 (0.8-2.0); ALKALINE PHOSPHATASE 55 IU/L (40-150); BLOOD UREA NITROGEN 19 mg/dL (7-26); BUN/CREATININE RATIO 25 (6-25); CALCIUM 9.2 mg/dL (8.4-10.2); CARBON DIOXIDE 24 mmol/L (22-29); CHLORIDE 104 mmol/L (98-107); CREATINE KINASE 41 IU/L (29-168); CREATININE, SERUM 0.75 mg/dL (0.57-1.11); EST GLOMERULAR FILTRATION RATE > 60 ML/MIN (60-); GLUCOSE 149 mg/dL (74-118); LIPASE 74 U/L (8-78); SODIUM 137 mmol/L (136-145)
[2018-10-22] MEDS ORDERED: LORAZEPAM 1 MG TAB PO ONE (11:15)
--- NOTE | 2018-10-22 11:18 | Diagnostic Imaging Report ---
EXAM: CHEST SINGLE (PORTABLE), AP Portable DATE: 10/22/2018 Time stamp on exam: 10:37 AM INDICATION: Shortness of breath COMPARISON: None FINDINGS: LINES/TUBES: None LUNGS: No consolidations or edema. Right basilar atelectasis. PLEURA: No effusions or pneumothorax. HEART AND MEDIASTINUM: Normal size and contour. BONES AND SOFT TISSUES: No acute findings. IMPRESSION: No acute thoracic abnormality. Signed by: Dr. Norbert Giraldo DO on 10/22/2018 11:15 AM
[2018-10-22 11:45] VITALS: BP 127/64
== END 2018-10-22 11:46 | disposition home or self-care (01) ==
LOC: ER 09:50
DX: R06.09 Other forms of dyspnea (principal); R07.89 Other chest pain; F41.1 Generalized anxiety disorder; Z87.01 Personal history of pneumonia (recurrent)
CPT/HCPCS: 36415; 71045; 80053; 82550; 82553; 83690; 84484; 85025; 85379; 93005; 99284; J2060

== ENCOUNTER 2020-04-26 09:16 | Inpatient (IN) | payer OTHER ==
[2020-04-26] VITALS (7 sets, daily range): BP systolic 100–127; BP diastolic 56–83
[~2020-04-26] VITALS: Ht 160 cm; Wt 87.5 kg
[2020-04-26] MEDS ORDERED: HYDROCODONE/CHLORPHENIRAMINE 5 ML LIQCR PO PRN (11:45)
[2020-04-26] MEDS ORDERED: DEXAMETHASONE SOD PHOS INJ 4 MG/ML VIAL IV ONE (12:15)
[2020-04-26 12:17] LABS: BASOPHILS % 0.2 % (0.0-1.0); EOSINOPHILS % 0.2 % (0.0-6.0); HEMATOCRIT 39.6 % (34.2-44.1); HEMOGLOBIN 13.2 g/dL (12.0-16.0); LYMPHOCYTES # (AUTO) 1.5 (1.0-3.2); LYMPHOCYTES % 29.6 % (18.0-39.1); MEAN CORPUSCULAR HGB CONC 33.3 g/dL (31-35); MEAN CORPUSCULAR VOLUME 84.1 fL (81-99); MONOCYTES # (AUTO) 0.1 (0.2-0.8); MONOCYTES % 2.5 % (4.4-11.3); NEUTROPHILS # (AUTO) 3.5 (2.1-6.9); NEUTROPHILS % 67.1 % (38.7-80.0); PLATELET COUNT 213 x10e3/uL (140-360); RED BLOOD COUNT 4.71 x10e6/uL (3.6-5.1); RED CELL DISTRIBUTION WIDTH 12.1 % (11.7-14.4)
[2020-04-26] MEDS: CEFTRIAXONE SOD 1 GM/NS 50 ML 50 ML IV SCH (12:28)
[2020-04-26 12:29] LABS: INR 0.86; PARTIAL THROMBOPLASTIN TIME 27.5 seconds (23.8-35.5); PROTHROMBIN TIME 12.2 seconds (11.9-14.5)
[2020-04-26] MEDS: AZITHROMYCIN 500MG/NS 250 ML 250 ML IV SCH (12:35)
[2020-04-26 12:38] LABS: ALANINE AMINOTRANSFERASE 15 IU/L (0-55); ALBUMIN 3.3 g/dL (3.5-5.0); ALBUMIN/GLOBULIN RATIO 0.9 (0.8-2.0); ALKALINE PHOSPHATASE 69 IU/L (40-150); ANION GAP 13.9 mmol/L (8-16); BLOOD UREA NITROGEN 9 mg/dL (7-26); BUN/CREATININE RATIO 11 (6-25); CALCIUM 8.3 mg/dL (8.4-10.2); CARBON DIOXIDE 25 mmol/L (22-29); CHLORIDE 98 mmol/L (98-107); CREATINE KINASE 168 IU/L (29-168); CREATININE, SERUM 0.85 mg/dL (0.57-1.11); EST GLOMERULAR FILTRATION RATE > 60 ML/MIN (60-); GLUCOSE 234 mg/dL (74-118); MAGNESIUM 1.7 MG/DL (1.3-2.1); POTASSIUM 3.9 mmol/L (3.5-5.1); SODIUM 133 mmol/L (136-145)
[2020-04-26] MEDS ORDERED: ACETAMINOPHEN 325 MG TAB PO ONE (13:15)
[2020-04-26] MEDS ORDERED: DEXTROSE 50% SYRINGE 50 ML IV PRN (14:45)
[2020-04-26] MEDS: INSULIN LISPRO 100 UNIT/1 ML 3ML VIAL SQ SCH ×2 (14:47→21:00)
[2020-04-26] MEDS ORDERED: ONDANSETRON HCL INJ 2MG/ML 2ML 2 MG/ML VIAL IV PRN ×2 (16:45→17:15)
[2020-04-26] MEDS: ASCORBIC ACID 500 MG TAB PO SCH (17:00)
[2020-04-26] MEDS ORDERED: ENOXAPARIN INJ 80 MG/0.8 ML SYR SC SCH (17:00)
[2020-04-26] MEDS: ENOXAPARIN 30 MG/0.3 ML SYR SC SCH (17:00)
[2020-04-26] MEDS ORDERED: LYRICA150 MG PO (17:43)
[2020-04-26] MEDS ORDERED: CYMBALTA30 MG (17:43)
[2020-04-26] MEDS ORDERED: LISINOPRIL5 MG PO (17:43)
[2020-04-26] MEDS ORDERED: LANTUS 3ML100 UNITS/ SQ (17:43)
[2020-04-26] MEDS ORDERED: CARVEDILOL12.5 MG PO (17:43)
[2020-04-26] MEDS ORDERED: REMDESIVIR 200MG/NS 100ML 200 MG in SODIUM CHLORIDE 0.9% 100 ML 100 ML IV ONE (18:30)
[2020-04-26] MEDS ORDERED: HYDRALAZINE HCL 20 MG/ML VIAL IV PRN (18:45)
[2020-04-26] MEDS ORDERED: LORAZEPAM 1 MG TAB PO ONE (20:15)
[2020-04-26] MEDS ORDERED: ASCORBIC ACID 500 MG TAB PO ONE (20:15)
[2020-04-26] MEDS ORDERED: ENOXAPARIN 30 MG/0.3 ML SYR SC ONE (20:15)
[2020-04-26] MEDS ORDERED: INSULIN LISPRO 100 UNIT/1 ML 3ML VIAL SQ ONE (20:15)
[2020-04-26] MEDS ORDERED: SODIUM CHLORIDE 0.9% 250ML 250 ML ONE (20:52)
[2020-04-26] MEDS: CARVEDILOL 12.5 MG TAB PO SCH (21:14)
[2020-04-26] MEDS: PREGABALIN 75 MG CAP PO SCH (21:15)
[2020-04-26] MEDS: SIMVASTATIN 20 MG TAB PO SCH (21:15)
[2020-04-26] MEDS: LISINOPRIL 2.5 MG TAB PO SCH (21:15)
[2020-04-26] MEDS: DULOXETINE HCL 30 MG DELAYED RELEASE PO SCH (21:15)
[2020-04-26] MEDS: INSULIN GLARGINE 100 UNITS/ML VIAL SQ SCH (21:16)
[2020-04-27] VITALS (11 sets, daily range): BP systolic 98–127; BP diastolic 46–77
[2020-04-27 04:48] LABS: HEMATOCRIT 34.8 % (34.2-44.1); HEMOGLOBIN 11.5 g/dL (12.0-16.0); LYMPHOCYTES # (AUTO) 1.1 (1.0-3.2); LYMPHOCYTES % 39.2 % (18.0-39.1); MEAN CORPUSCULAR HEMOGLOBIN 27.5 pg (28-32); MEAN CORPUSCULAR VOLUME 83.3 fL (81-99); MONOCYTES # (AUTO) 0.2 (0.2-0.8); MONOCYTES % 6.3 % (4.4-11.3); NEUTROPHILS # (AUTO) 1.6 (2.1-6.9); NEUTROPHILS % 53.8 % (38.7-80.0); PLATELET COUNT 217 x10e3/uL (140-360); RED BLOOD COUNT 4.18 x10e6/uL (3.6-5.1)
[2020-04-27 05:17] LABS: ALANINE AMINOTRANSFERASE 13 IU/L (0-55); ALBUMIN 2.6 g/dL (3.5-5.0); ALBUMIN/GLOBULIN RATIO 0.7 (0.8-2.0); ALKALINE PHOSPHATASE 61 IU/L (40-150); ANION GAP 14.1 mmol/L (8-16); BLOOD UREA NITROGEN 15 mg/dL (7-26); BUN/CREATININE RATIO 21 (6-25); CALCIUM 8.2 mg/dL (8.4-10.2); CARBON DIOXIDE 23 mmol/L (22-29); CHLORIDE 102 mmol/L (98-107); CREATININE, SERUM 0.71 mg/dL (0.57-1.11); EST GLOMERULAR FILTRATION RATE > 60 ML/MIN (60-); GLUCOSE 214 mg/dL (74-118); POTASSIUM 4.1 mmol/L (3.5-5.1); SODIUM 135 mmol/L (136-145)
[2020-04-27 07:28] LABS: LYMPHOCYTES % (MANUAL) 39 % (19-48); MONOCYTES % (MANUAL) 6 % (3.4-9.0); NEUTROPHILS % (MANUAL) 55 % (40-74); PLATELET ESTIMATE ADEQUATE; PLATELET MORPHOLOGY COMMENT NORMAL; RBC MORPHOLOGY COMMENT NORMAL
[2020-04-27] MEDS: INSULIN LISPRO 100 UNIT/1 ML 3ML VIAL SQ SCH ×2 (07:30→11:30)
[2020-04-27] MEDS: DEXAMETHASONE SOD PHOS 10 MG/1 ML VIAL IV SCH (08:08)
[2020-04-27] MEDS: CARVEDILOL 12.5 MG TAB PO SCH ×2 (08:08→20:49)
[2020-04-27] MEDS: PREGABALIN 75 MG CAP PO SCH ×2 (08:09→19:28)
[2020-04-27] MEDS: CHOLECALCIFEROL 400 UNIT TAB PO SCH (08:54)
[2020-04-27] MEDS ORDERED: CLOPIDOGREL BISULFATE 75 MG TAB PO SCH (09:00)
[2020-04-27] MEDS ORDERED: ASPIRIN 325 MG TAB PO SCH (09:00)
[2020-04-27] MEDS: ZINC SULFATE 220 MG CAP PO SCH (10:09)
[2020-04-27] MEDS: ENOXAPARIN 30 MG/0.3 ML SYR SC SCH ×2 (10:09→19:28)
[2020-04-27] MEDS: ASCORBIC ACID 500 MG TAB PO SCH ×2 (10:09→17:14)
[2020-04-27] MEDS: CEFTRIAXONE SOD 1 GM/NS 50 ML 50 ML IV SCH (12:20)
[2020-04-27] MEDS: AZITHROMYCIN 500MG/NS 250 ML 250 ML IV SCH (13:03)
[2020-04-27] MEDS: REMDESIVIR 100MG/NS 100ML 100 MG IV SCH (13:44)
[2020-04-27] MEDS ORDERED: DEXTROSE 50% SYRINGE 50 ML IV PRN ×2 (18:00)
[2020-04-27] MEDS ORDERED: INSULIN LISPRO 100 UNIT/1 ML 3ML VIAL SQ ONE (18:30)
[2020-04-27] MEDS: DULOXETINE HCL 30 MG DELAYED RELEASE PO SCH (19:27)
[2020-04-27] MEDS: CLOPIDOGREL BISULFATE 75 MG TAB PO SCH (19:28)
[2020-04-27] MEDS: ASPIRIN 325 MG TAB PO SCH (20:48)
[2020-04-27] MEDS: LISINOPRIL 2.5 MG TAB PO SCH (20:49)
[2020-04-27] MEDS: SIMVASTATIN 20 MG TAB PO SCH (20:50)
[2020-04-27] MEDS: INSULIN GLARGINE 100 UNITS/ML VIAL SQ SCH (21:02)
[2020-04-27] MEDS ORDERED: LORAZEPAM INJ 2 MG/ML VIAL IV ONE (22:00)
[2020-04-27] MEDS ORDERED: LORAZEPAM INJ 2 MG/ML VIAL IV PRN (22:30)
[2020-04-28] VITALS (7 sets, daily range): BP systolic 122–151; BP diastolic 65–91
[2020-04-28 05:30] LABS: BASOPHILS % 0.2 % (0.0-1.0); LYMPHOCYTES # (AUTO) 1.3 (1.0-3.2); LYMPHOCYTES % 25.5 % (18.0-39.1); MEAN CORPUSCULAR HEMOGLOBIN 27.7 pg (28-32); MEAN CORPUSCULAR HGB CONC 32.5 g/dL (31-35); MEAN CORPUSCULAR VOLUME 85.3 fL (81-99); MONOCYTES # (AUTO) 0.2 (0.2-0.8); MONOCYTES % 4.3 % (4.4-11.3); NEUTROPHILS # (AUTO) 3.5 (2.1-6.9); NEUTROPHILS % 69.6 % (38.7-80.0); PLATELET COUNT 270 x10e3/uL (140-360); RED BLOOD COUNT 4.69 x10e6/uL (3.6-5.1); RED CELL DISTRIBUTION WIDTH 12.2 % (11.7-14.4)
[2020-04-28 05:44] LABS: ANION GAP 15.5 mmol/L (8-16); BLOOD UREA NITROGEN 20 mg/dL (7-26); BUN/CREATININE RATIO 25 (6-25); CALCIUM 8.7 mg/dL (8.4-10.2); CARBON DIOXIDE 21 mmol/L (22-29); CHLORIDE 102 mmol/L (98-107); CREATININE, SERUM 0.79 mg/dL (0.57-1.11); EST GLOMERULAR FILTRATION RATE > 60 ML/MIN (60-); GLUCOSE 309 mg/dL (74-118); POTASSIUM 4.5 mmol/L (3.5-5.1); SODIUM 134 mmol/L (136-145)
[2020-04-28] MEDS: ASCORBIC ACID 500 MG TAB PO SCH ×2 (08:47→21:34)
[2020-04-28] MEDS: CARVEDILOL 12.5 MG TAB PO SCH ×2 (08:47→21:33)
[2020-04-28] MEDS: DEXAMETHASONE SOD PHOS 10 MG/1 ML VIAL IV SCH (08:47)
[2020-04-28] MEDS: PREGABALIN 75 MG CAP PO SCH ×2 (08:47→21:33)
[2020-04-28] MEDS: ZINC SULFATE 220 MG CAP PO SCH (08:48)
[2020-04-28] MEDS: ENOXAPARIN 30 MG/0.3 ML SYR SC SCH ×2 (08:48→21:34)
[2020-04-28] MEDS: CHOLECALCIFEROL 400 UNIT TAB PO SCH (08:48)
[2020-04-28] MEDS: GUAIFENESIN/CODEINE 10 ML CUP PO PRN (10:06)
[2020-04-28] MEDS: INSULIN LISPRO 100 UNIT/1 ML 3ML VIAL SQ SCH ×3 (11:30→21:00)
[2020-04-28] MEDS: LORAZEPAM INJ 2 MG/ML VIAL IV PRN ×3 (11:35→23:24)
[2020-04-28] MEDS: CEFTRIAXONE SOD 1 GM/NS 50 ML 50 ML IV SCH (12:04)
[2020-04-28] MEDS: AZITHROMYCIN 500MG/NS 250 ML 250 ML IV SCH (13:18)
[2020-04-28] MEDS: REMDESIVIR 100MG/NS 100ML 100 MG IV SCH (15:29)
[2020-04-28] MEDS: INSULIN GLARGINE 100 UNITS/ML VIAL SQ SCH (21:00)
[2020-04-28] MEDS: DULOXETINE HCL 30 MG DELAYED RELEASE PO SCH (21:33)
[2020-04-28] MEDS: CLOPIDOGREL BISULFATE 75 MG TAB PO SCH (21:33)
[2020-04-28] MEDS: ASPIRIN 325 MG TAB PO SCH (21:33)
[2020-04-28] MEDS: LISINOPRIL 2.5 MG TAB PO SCH (21:34)
[2020-04-28] MEDS: SIMVASTATIN 20 MG TAB PO SCH (21:34)
[2020-04-29] VITALS (8 sets, daily range): BP systolic 107–144; BP diastolic 71–88
[2020-04-29] MEDS: GUAIFENESIN/CODEINE 10 ML CUP PO PRN ×2 (00:09→21:08)
[2020-04-29] MEDS: ZOLPIDEM TARTRATE 5 MG TAB PO PRN (00:56)
[2020-04-29 06:19] LABS: BASOPHILS % 0.1 % (0.0-1.0); HEMATOCRIT 36.4 % (34.2-44.1); HEMOGLOBIN 11.8 g/dL (12.0-16.0); LYMPHOCYTES # (AUTO) 1.8 (1.0-3.2); LYMPHOCYTES % 23.1 % (18.0-39.1); MEAN CORPUSCULAR HEMOGLOBIN 27.3 pg (28-32); MEAN CORPUSCULAR HGB CONC 32.4 g/dL (31-35); MEAN CORPUSCULAR VOLUME 84.1 fL (81-99); MONOCYTES # (AUTO) 0.4 (0.2-0.8); MONOCYTES % 4.5 % (4.4-11.3); NEUTROPHILS # (AUTO) 5.7 (2.1-6.9); NEUTROPHILS % 71.9 % (38.7-80.0); PLATELET COUNT 318 x10e3/uL (140-360); RED BLOOD COUNT 4.33 x10e6/uL (3.6-5.1); RED CELL DISTRIBUTION WIDTH 11.9 % (11.7-14.4)
[2020-04-29 06:48] LABS: ALANINE AMINOTRANSFERASE 20 IU/L (0-55); ALBUMIN 2.5 g/dL (3.5-5.0); ALBUMIN/GLOBULIN RATIO 0.7 (0.8-2.0); ALKALINE PHOSPHATASE 63 IU/L (40-150); ANION GAP 12.9 mmol/L (8-16); BLOOD UREA NITROGEN 21 mg/dL (7-26); BUN/CREATININE RATIO 31 (6-25); CALCIUM 8.1 mg/dL (8.4-10.2); CARBON DIOXIDE 24 mmol/L (22-29); CHLORIDE 103 mmol/L (98-107); CREATININE, SERUM 0.68 mg/dL (0.57-1.11); EST GLOMERULAR FILTRATION RATE > 60 ML/MIN (60-); GLUCOSE 167 mg/dL (74-118); POTASSIUM 3.9 mmol/L (3.5-5.1); SODIUM 136 mmol/L (136-145)
[2020-04-29] MEDS: INSULIN LISPRO 100 UNIT/1 ML 3ML VIAL SQ SCH ×4 (07:40→20:52)
[2020-04-29] MEDS: DEXAMETHASONE SOD PHOS 10 MG/1 ML VIAL IV SCH (08:59)
[2020-04-29] MEDS: CARVEDILOL 12.5 MG TAB PO SCH ×2 (08:59→20:51)
[2020-04-29] MEDS: ZINC SULFATE 220 MG CAP PO SCH (08:59)
[2020-04-29] MEDS: ASCORBIC ACID 500 MG TAB PO SCH ×2 (08:59→20:49)
[2020-04-29] MEDS: CHOLECALCIFEROL 400 UNIT TAB PO SCH (08:59)
[2020-04-29] MEDS: PREGABALIN 75 MG CAP PO SCH ×2 (08:59→20:49)
[2020-04-29] MEDS: ENOXAPARIN 30 MG/0.3 ML SYR SC SCH ×2 (08:59→20:50)
[2020-04-29] MEDS: CEFTRIAXONE SOD 1 GM/NS 50 ML 50 ML IV SCH (12:35)
[2020-04-29] MEDS: REMDESIVIR 100MG/NS 100ML 100 MG IV SCH (14:14)
[2020-04-29] MEDS: LORAZEPAM INJ 2 MG/ML VIAL IV PRN (15:33)
[2020-04-29] MEDS: DULOXETINE HCL 30 MG DELAYED RELEASE PO SCH (20:49)
[2020-04-29] MEDS: CLOPIDOGREL BISULFATE 75 MG TAB PO SCH (20:49)
[2020-04-29] MEDS: ASPIRIN 325 MG TAB PO SCH (20:49)
[2020-04-29] MEDS: SIMVASTATIN 20 MG TAB PO SCH (20:50)
[2020-04-29] MEDS: LISINOPRIL 2.5 MG TAB PO SCH (20:51)
[2020-04-29] MEDS: INSULIN GLARGINE 100 UNITS/ML VIAL SQ SCH (20:52)
[2020-04-30] VITALS (8 sets, daily range): BP systolic 115–153; BP diastolic 76–91
[2020-04-30] MEDS: LORAZEPAM INJ 2 MG/ML VIAL IV PRN ×4 (05:32→23:05)
[2020-04-30 05:42] LABS: BASOPHILS % 0.1 % (0.0-1.0); HEMATOCRIT 37.4 % (34.2-44.1); HEMOGLOBIN 12.2 g/dL (12.0-16.0); LYMPHOCYTES # (AUTO) 1.2 (1.0-3.2); MEAN CORPUSCULAR HEMOGLOBIN 27.4 pg (28-32); MEAN CORPUSCULAR HGB CONC 32.6 g/dL (31-35); MONOCYTES # (AUTO) 0.4 (0.2-0.8); MONOCYTES % 5.2 % (4.4-11.3); NEUTROPHILS # (AUTO) 5.6 (2.1-6.9); NEUTROPHILS % 77.1 % (38.7-80.0); PLATELET COUNT 344 x10e3/uL (140-360); RED BLOOD COUNT 4.45 x10e6/uL (3.6-5.1); RED CELL DISTRIBUTION WIDTH 11.9 % (11.7-14.4)
[2020-04-30 06:33] LABS: ALANINE AMINOTRANSFERASE 46 IU/L (0-55); ALBUMIN 2.4 g/dL (3.5-5.0); ALBUMIN/GLOBULIN RATIO 0.7 (0.8-2.0); ALKALINE PHOSPHATASE 74 IU/L (40-150); ANION GAP 14.1 mmol/L (8-16); BLOOD UREA NITROGEN 18 mg/dL (7-26); BUN/CREATININE RATIO 25 (6-25); CALCIUM 8.1 mg/dL (8.4-10.2); CARBON DIOXIDE 24 mmol/L (22-29); CHLORIDE 101 mmol/L (98-107); CREATININE, SERUM 0.73 mg/dL (0.57-1.11); EST GLOMERULAR FILTRATION RATE > 60 ML/MIN (60-); GLUCOSE 273 mg/dL (74-118); POTASSIUM 4.1 mmol/L (3.5-5.1); SODIUM 135 mmol/L (136-145)
[2020-04-30] MEDS: DEXAMETHASONE SOD PHOS 10 MG/1 ML VIAL IV SCH (08:17)
[2020-04-30] MEDS: PREGABALIN 75 MG CAP PO SCH ×2 (08:18→23:14)
[2020-04-30] MEDS: ASCORBIC ACID 500 MG TAB PO SCH ×2 (08:18→23:14)
[2020-04-30] MEDS: ENOXAPARIN 30 MG/0.3 ML SYR SC SCH ×2 (08:18→23:14)
[2020-04-30] MEDS: CARVEDILOL 12.5 MG TAB PO SCH ×2 (08:18→23:14)
[2020-04-30] MEDS: ZINC SULFATE 220 MG CAP PO SCH (08:18)
[2020-04-30] MEDS: CHOLECALCIFEROL 400 UNIT TAB PO SCH (08:18)
[2020-04-30] MEDS: INSULIN LISPRO 100 UNIT/1 ML 3ML VIAL SQ SCH ×4 (08:20→23:00)
[2020-04-30] MEDS: CEFTRIAXONE SOD 1 GM/NS 50 ML 50 ML IV SCH (12:22)
[2020-04-30] MEDS: REMDESIVIR 100MG/NS 100ML 100 MG IV SCH (14:52)
[2020-04-30] MEDS: ACETAMINOPHEN 325 MG TAB PO PRN (16:44)
[2020-04-30] MEDS: DULOXETINE HCL 30 MG DELAYED RELEASE PO SCH (23:14)
[2020-04-30] MEDS: ASPIRIN 325 MG TAB PO SCH (23:14)
[2020-04-30] MEDS: SIMVASTATIN 20 MG TAB PO SCH (23:14)
[2020-04-30] MEDS: ZOLPIDEM TARTRATE 5 MG TAB PO PRN (23:14)
[2020-04-30] MEDS: CLOPIDOGREL BISULFATE 75 MG TAB PO SCH (23:14)
[2020-04-30] MEDS: LISINOPRIL 2.5 MG TAB PO SCH (23:14)
[2020-04-30] MEDS: INSULIN GLARGINE 100 UNITS/ML VIAL SQ SCH (23:28)
[2020-05-01] VITALS (8 sets, daily range): BP systolic 113–148; BP diastolic 65–83
[2020-05-01 05:31] LABS: BASOPHILS % 0.2 % (0.0-1.0); HEMOGLOBIN 12.2 g/dL (12.0-16.0); LYMPHOCYTES # (AUTO) 1.7 (1.0-3.2); LYMPHOCYTES % 17.9 % (18.0-39.1); MEAN CORPUSCULAR HEMOGLOBIN 27.7 pg (28-32); MEAN CORPUSCULAR HGB CONC 33.9 g/dL (31-35); MEAN CORPUSCULAR VOLUME 81.6 fL (81-99); MONOCYTES # (AUTO) 0.6 (0.2-0.8); MONOCYTES % 6.3 % (4.4-11.3); NEUTROPHILS # (AUTO) 7.2 (2.1-6.9); NEUTROPHILS % 74.9 % (38.7-80.0); PLATELET COUNT 356 x10e3/uL (140-360); RED BLOOD COUNT 4.41 x10e6/uL (3.6-5.1); RED CELL DISTRIBUTION WIDTH 11.9 % (11.7-14.4)
[2020-05-01 05:44] LABS: ALANINE AMINOTRANSFERASE 36 IU/L (0-55); ALBUMIN 2.3 g/dL (3.5-5.0); ALBUMIN/GLOBULIN RATIO 0.7 (0.8-2.0); ALKALINE PHOSPHATASE 69 IU/L (40-150); ANION GAP 10.9 mmol/L (8-16); BLOOD UREA NITROGEN 17 mg/dL (7-26); BUN/CREATININE RATIO 27 (6-25); CALCIUM 8.2 mg/dL (8.4-10.2); CARBON DIOXIDE 27 mmol/L (22-29); CHLORIDE 102 mmol/L (98-107); CREATININE, SERUM 0.64 mg/dL (0.57-1.11); EST GLOMERULAR FILTRATION RATE > 60 ML/MIN (60-); GLUCOSE 135 mg/dL (74-118); POTASSIUM 3.9 mmol/L (3.5-5.1); SODIUM 136 mmol/L (136-145)
[2020-05-01] MEDS: INSULIN LISPRO 100 UNIT/1 ML 3ML VIAL SQ SCH ×4 (07:30→21:30)
[2020-05-01] MEDS: DEXAMETHASONE SOD PHOS 10 MG/1 ML VIAL IV SCH (10:32)
[2020-05-01] MEDS: CARVEDILOL 12.5 MG TAB PO SCH ×2 (10:33→21:30)
[2020-05-01] MEDS: CHOLECALCIFEROL 400 UNIT TAB PO SCH (10:33)
[2020-05-01] MEDS: PREGABALIN 75 MG CAP PO SCH ×2 (10:33→21:30)
[2020-05-01] MEDS: ZINC SULFATE 220 MG CAP PO SCH (10:33)
[2020-05-01] MEDS: ASCORBIC ACID 500 MG TAB PO SCH ×2 (10:33→21:30)
[2020-05-01] MEDS: CEFTRIAXONE SOD 1 GM/NS 50 ML 50 ML IV SCH (11:47)
[2020-05-01] MEDS: GUAIFENESIN/CODEINE 10 ML CUP PO PRN (18:14)
[2020-05-01] MEDS: ACETAMINOPHEN 325 MG TAB PO PRN (18:14)
[2020-05-01] MEDS ORDERED: LORAZEPAM INJ 2 MG/ML VIAL IV PRN (18:45)
[2020-05-01] MEDS: ENOXAPARIN 30 MG/0.3 ML SYR SC SCH (21:30)
[2020-05-01] MEDS: INSULIN GLARGINE 100 UNITS/ML VIAL SQ SCH (21:30)
[2020-05-01] MEDS: SIMVASTATIN 20 MG TAB PO SCH (21:30)
[2020-05-01] MEDS: LISINOPRIL 2.5 MG TAB PO SCH (21:30)
[2020-05-01] MEDS: DULOXETINE HCL 30 MG DELAYED RELEASE PO SCH (21:30)
[2020-05-01] MEDS: CLOPIDOGREL BISULFATE 75 MG TAB PO SCH (21:30)
[2020-05-01] MEDS: ASPIRIN 325 MG TAB PO SCH (21:30)
[2020-05-02] VITALS (8 sets, daily range): BP systolic 101–130; BP diastolic 63–81
[2020-05-02 05:30] LABS: BASOPHILS % 0.1 % (0.0-1.0); EOSINOPHILS # (AUTO) 0.1 (0.0-0.4); EOSINOPHILS % 1.5 % (0.0-6.0); HEMATOCRIT 34.8 % (34.2-44.1); HEMOGLOBIN 11.6 g/dL (12.0-16.0); LYMPHOCYTES # (AUTO) 1.9 (1.0-3.2); LYMPHOCYTES % 24.4 % (18.0-39.1); MEAN CORPUSCULAR HEMOGLOBIN 27.9 pg (28-32); MEAN CORPUSCULAR HGB CONC 33.3 g/dL (31-35); MEAN CORPUSCULAR VOLUME 83.7 fL (81-99); MONOCYTES # (AUTO) 0.5 (0.2-0.8); MONOCYTES % 6.6 % (4.4-11.3); NEUTROPHILS # (AUTO) 5.1 (2.1-6.9); NEUTROPHILS % 66.2 % (38.7-80.0); PLATELET COUNT 355 x10e3/uL (140-360); RED BLOOD COUNT 4.16 x10e6/uL (3.6-5.1)
[2020-05-02 05:53] LABS: ANION GAP 11.7 mmol/L (8-16); BLOOD UREA NITROGEN 16 mg/dL (7-26); BUN/CREATININE RATIO 26 (6-25); CALCIUM 7.8 mg/dL (8.4-10.2); CARBON DIOXIDE 27 mmol/L (22-29); CHLORIDE 102 mmol/L (98-107); CREATININE, SERUM 0.61 mg/dL (0.57-1.11); EST GLOMERULAR FILTRATION RATE > 60 ML/MIN (60-); GLUCOSE 94 mg/dL (74-118); POTASSIUM 3.7 mmol/L (3.5-5.1); SODIUM 137 mmol/L (136-145)
[2020-05-02] MEDS: DEXAMETHASONE SOD PHOS 10 MG/1 ML VIAL IV SCH (08:51)
[2020-05-02] MEDS: PREGABALIN 75 MG CAP PO SCH ×2 (08:52→21:18)
[2020-05-02] MEDS: ASCORBIC ACID 500 MG TAB PO SCH ×2 (08:52→21:18)
[2020-05-02] MEDS: ZINC SULFATE 220 MG CAP PO SCH (08:52)
[2020-05-02] MEDS: CHOLECALCIFEROL 400 UNIT TAB PO SCH (08:52)
[2020-05-02] MEDS: CARVEDILOL 12.5 MG TAB PO SCH ×2 (08:52→21:19)
[2020-05-02] MEDS: ENOXAPARIN 30 MG/0.3 ML SYR SC SCH ×2 (08:53→21:18)
[2020-05-02] MEDS: INSULIN LISPRO 100 UNIT/1 ML 3ML VIAL SQ SCH ×4 (08:58→21:22)
[2020-05-02] MEDS: CEFTRIAXONE SOD 1 GM/NS 50 ML 50 ML IV SCH (13:01)
[2020-05-02] MEDS: FAMOTIDINE 20 MG TAB PO SCH (18:27)
[2020-05-02] MEDS: SIMVASTATIN 20 MG TAB PO SCH (21:18)
[2020-05-02] MEDS: CLOPIDOGREL BISULFATE 75 MG TAB PO SCH (21:18)
[2020-05-02] MEDS: ASPIRIN 325 MG TAB PO SCH (21:18)
[2020-05-02] MEDS: DULOXETINE HCL 30 MG DELAYED RELEASE PO SCH (21:18)
[2020-05-02] MEDS: LORAZEPAM 0.5 MG TAB PO PRN (21:19)
[2020-05-02] MEDS: LISINOPRIL 2.5 MG TAB PO SCH (21:19)
[2020-05-02] MEDS: INSULIN GLARGINE 100 UNITS/ML VIAL SQ SCH (21:22)
[2020-05-02] MEDS: ZOLPIDEM TARTRATE 5 MG TAB PO PRN (22:26)
[2020-05-03] VITALS (8 sets, daily range): BP systolic 128–170; BP diastolic 77–94
[2020-05-03] MEDS ORDERED: LORAZEPAM INJ 2 MG/ML VIAL IV ONE (01:30)
[2020-05-03 04:53] LABS: BASOPHILS % 0.1 % (0.0-1.0); HEMATOCRIT 33.9 % (34.2-44.1); HEMOGLOBIN 11.4 g/dL (12.0-16.0); LYMPHOCYTES # (AUTO) 1.1 (1.0-3.2); LYMPHOCYTES % 10.2 % (18.0-39.1); MEAN CORPUSCULAR HEMOGLOBIN 27.7 pg (28-32); MEAN CORPUSCULAR HGB CONC 33.6 g/dL (31-35); MEAN CORPUSCULAR VOLUME 82.5 fL (81-99); MONOCYTES # (AUTO) 0.6 (0.2-0.8); MONOCYTES % 6.1 % (4.4-11.3); NEUTROPHILS # (AUTO) 8.5 (2.1-6.9); NEUTROPHILS % 82.1 % (38.7-80.0); PLATELET COUNT 433 x10e3/uL (140-360); RED BLOOD COUNT 4.11 x10e6/uL (3.6-5.1); RED CELL DISTRIBUTION WIDTH 12.1 % (11.7-14.4)
[2020-05-03 05:14] LABS: ALANINE AMINOTRANSFERASE 17 IU/L (0-55); ALBUMIN 2.2 g/dL (3.5-5.0); ALBUMIN/GLOBULIN RATIO 0.6 (0.8-2.0); ALKALINE PHOSPHATASE 75 IU/L (40-150); ANION GAP 10.8 mmol/L (8-16); BLOOD UREA NITROGEN 21 mg/dL (7-26); BUN/CREATININE RATIO 26 (6-25); CALCIUM 8.2 mg/dL (8.4-10.2); CARBON DIOXIDE 25 mmol/L (22-29); CHLORIDE 106 mmol/L (98-107); EST GLOMERULAR FILTRATION RATE > 60 ML/MIN (60-); GLUCOSE 178 mg/dL (74-118); PHOSPHORUS 2.8 MG/DL (2.3-4.7); POTASSIUM 3.8 mmol/L (3.5-5.1); SODIUM 138 mmol/L (136-145)
[2020-05-03] MEDS: PREGABALIN 75 MG CAP PO SCH (08:20)
[2020-05-03] MEDS: ASCORBIC ACID 500 MG TAB PO SCH ×2 (08:20→20:53)
[2020-05-03] MEDS: CHOLECALCIFEROL 400 UNIT TAB PO SCH (08:20)
[2020-05-03] MEDS: CARVEDILOL 12.5 MG TAB PO SCH ×2 (08:20→20:53)
[2020-05-03] MEDS: ZINC SULFATE 220 MG CAP PO SCH (08:21)
[2020-05-03] MEDS: FAMOTIDINE 20 MG TAB PO SCH ×2 (08:21→16:16)
[2020-05-03] MEDS: ENOXAPARIN 30 MG/0.3 ML SYR SC SCH ×2 (08:21→21:01)
[2020-05-03] MEDS: LORAZEPAM 0.5 MG TAB PO PRN ×2 (08:25→17:00)
[2020-05-03] MEDS: DEXAMETHASONE SOD PHOS 10 MG/1 ML VIAL IV SCH (08:25)
[2020-05-03] MEDS: INSULIN LISPRO 100 UNIT/1 ML 3ML VIAL SQ SCH ×4 (08:32→21:10)
[2020-05-03] MEDS: CLOPIDOGREL BISULFATE 75 MG TAB PO SCH (20:53)
[2020-05-03] MEDS: LISINOPRIL 2.5 MG TAB PO SCH (20:53)
[2020-05-03] MEDS: DULOXETINE HCL 30 MG DELAYED RELEASE PO SCH (20:53)
[2020-05-03] MEDS: ZOLPIDEM TARTRATE 5 MG TAB PO PRN (20:53)
[2020-05-03] MEDS: ASPIRIN 325 MG TAB PO SCH (20:53)
[2020-05-03] MEDS: SIMVASTATIN 20 MG TAB PO SCH (20:53)
[2020-05-03] MEDS: INSULIN GLARGINE 100 UNITS/ML VIAL SQ SCH (21:10)
[2020-05-04] VITALS (8 sets, daily range): BP systolic 134–166; BP diastolic 65–94
[2020-05-04 04:55] LABS: BASOPHILS % 0.1 % (0.0-1.0); HEMOGLOBIN 12.2 g/dL (12.0-16.0); LYMPHOCYTES # (AUTO) 1.1 (1.0-3.2); LYMPHOCYTES % 9.4 % (18.0-39.1); MEAN CORPUSCULAR HEMOGLOBIN 27.6 pg (28-32); MEAN CORPUSCULAR VOLUME 83.7 fL (81-99); MONOCYTES # (AUTO) 0.8 (0.2-0.8); MONOCYTES % 6.4 % (4.4-11.3); NEUTROPHILS # (AUTO) 10.1 (2.1-6.9); NEUTROPHILS % 82.9 % (38.7-80.0); PLATELET COUNT 430 x10e3/uL (140-360); RED BLOOD COUNT 4.42 x10e6/uL (3.6-5.1); RED CELL DISTRIBUTION WIDTH 12.1 % (11.7-14.4)
[2020-05-04] MEDS: LORAZEPAM 0.5 MG TAB PO PRN ×3 (05:10→20:45)
[2020-05-04 05:17] LABS: ANION GAP 12.2 mmol/L (8-16); BLOOD UREA NITROGEN 18 mg/dL (7-26); BUN/CREATININE RATIO 25 (6-25); CALCIUM 8.2 mg/dL (8.4-10.2); CARBON DIOXIDE 21 mmol/L (22-29); CHLORIDE 104 mmol/L (98-107); CREATININE, SERUM 0.72 mg/dL (0.57-1.11); EST GLOMERULAR FILTRATION RATE > 60 ML/MIN (60-); GLUCOSE 307 mg/dL (74-118); POTASSIUM 4.2 mmol/L (3.5-5.1); SODIUM 133 mmol/L (136-145)
[2020-05-04] MEDS: FAMOTIDINE 20 MG TAB PO SCH ×2 (08:30→16:46)
[2020-05-04] MEDS: INSULIN LISPRO 100 UNIT/1 ML 3ML VIAL SQ SCH ×4 (08:30→21:07)
[2020-05-04] MEDS: ACETAMINOPHEN 325 MG TAB PO PRN (08:30)
[2020-05-04] MEDS: DEXAMETHASONE SOD PHOS 10 MG/1 ML VIAL IV SCH (09:11)
[2020-05-04] MEDS: ZINC SULFATE 220 MG CAP PO SCH (09:11)
[2020-05-04] MEDS: ASCORBIC ACID 500 MG TAB PO SCH ×2 (09:11→21:00)
[2020-05-04] MEDS: CHOLECALCIFEROL 400 UNIT TAB PO SCH (09:11)
[2020-05-04] MEDS: ENOXAPARIN 30 MG/0.3 ML SYR SC SCH ×2 (09:11→21:00)
[2020-05-04] MEDS: CARVEDILOL 12.5 MG TAB PO SCH ×2 (09:11→21:00)
[2020-05-04] MEDS: ZOLPIDEM TARTRATE 5 MG TAB PO PRN (20:45)
[2020-05-04] MEDS: DULOXETINE HCL 30 MG DELAYED RELEASE PO SCH (21:00)
[2020-05-04] MEDS: PREGABALIN 75 MG CAP PO SCH (21:00)
[2020-05-04] MEDS: SIMVASTATIN 20 MG TAB PO SCH (21:00)
[2020-05-04] MEDS: ASPIRIN 325 MG TAB PO SCH (21:00)
[2020-05-04] MEDS: CLOPIDOGREL BISULFATE 75 MG TAB PO SCH (21:00)
[2020-05-04] MEDS: LISINOPRIL 2.5 MG TAB PO SCH (21:00)
[2020-05-04] MEDS: INSULIN GLARGINE 100 UNITS/ML VIAL SQ SCH (21:07)
[2020-05-04] MEDS ORDERED: QUETIAPINE FUMARATE 25 MG TAB PO ONE (22:45)
[2020-05-04] MEDS ORDERED: LORAZEPAM INJ 2 MG/ML VIAL IV PRN (22:45)
[2020-05-05] VITALS (11 sets, daily range): BP systolic 122–160; BP diastolic 77–101
[2020-05-05 05:27] LABS: BASOPHILS % 0.1 % (0.0-1.0); HEMATOCRIT 35.4 % (34.2-44.1); HEMOGLOBIN 11.9 g/dL (12.0-16.0); LYMPHOCYTES # (AUTO) 1.6 (1.0-3.2); LYMPHOCYTES % 13.2 % (18.0-39.1); MEAN CORPUSCULAR HEMOGLOBIN 27.9 pg (28-32); MEAN CORPUSCULAR HGB CONC 33.6 g/dL (31-35); MEAN CORPUSCULAR VOLUME 83.1 fL (81-99); MONOCYTES # (AUTO) 1.2 (0.2-0.8); MONOCYTES % 10.4 % (4.4-11.3); NEUTROPHILS # (AUTO) 8.9 (2.1-6.9); NEUTROPHILS % 74.4 % (38.7-80.0); PLATELET COUNT 507 x10e3/uL (140-360); RED BLOOD COUNT 4.26 x10e6/uL (3.6-5.1); RED CELL DISTRIBUTION WIDTH 12.1 % (11.7-14.4)
[2020-05-05 05:49] LABS: ALANINE AMINOTRANSFERASE 20 IU/L (0-55); ALBUMIN 2.4 g/dL (3.5-5.0); ALBUMIN/GLOBULIN RATIO 0.7 (0.8-2.0); ALKALINE PHOSPHATASE 76 IU/L (40-150); ANION GAP 11.1 mmol/L (8-16); BLOOD UREA NITROGEN 17 mg/dL (7-26); BUN/CREATININE RATIO 21 (6-25); CALCIUM 8.7 mg/dL (8.4-10.2); CARBON DIOXIDE 30 mmol/L (22-29); CHLORIDE 99 mmol/L (98-107); CREATININE, SERUM 0.81 mg/dL (0.57-1.11); EST GLOMERULAR FILTRATION RATE > 60 ML/MIN (60-); GLUCOSE 287 mg/dL (74-118); POTASSIUM 4.1 mmol/L (3.5-5.1); SODIUM 136 mmol/L (136-145)
[2020-05-05] MEDS: INSULIN LISPRO 100 UNIT/1 ML 3ML VIAL SQ SCH ×4 (08:30→20:20)
[2020-05-05] MEDS: CARVEDILOL 12.5 MG TAB PO SCH ×2 (08:45→20:12)
[2020-05-05] MEDS: FAMOTIDINE 20 MG TAB PO SCH ×2 (08:45→16:42)
[2020-05-05] MEDS: CHOLECALCIFEROL 400 UNIT TAB PO SCH (09:36)
[2020-05-05] MEDS: ASCORBIC ACID 500 MG TAB PO SCH ×2 (09:36→20:13)
[2020-05-05] MEDS: ZINC SULFATE 220 MG CAP PO SCH (09:36)
[2020-05-05] MEDS: DEXAMETHASONE SOD PHOS 10 MG/1 ML VIAL IV SCH (09:36)
[2020-05-05] MEDS: PREGABALIN 75 MG CAP PO SCH ×2 (09:36→20:12)
[2020-05-05] MEDS: ENOXAPARIN 30 MG/0.3 ML SYR SC SCH ×2 (09:37→20:16)
[2020-05-05] MEDS: LORAZEPAM 0.5 MG TAB PO PRN ×2 (11:47→21:37)
[2020-05-05] MEDS: ASPIRIN 325 MG TAB PO SCH (20:11)
[2020-05-05] MEDS: DULOXETINE HCL 30 MG DELAYED RELEASE PO SCH (20:12)
[2020-05-05] MEDS: LISINOPRIL 2.5 MG TAB PO SCH (20:13)
[2020-05-05] MEDS: CLOPIDOGREL BISULFATE 75 MG TAB PO SCH (20:13)
[2020-05-05] MEDS: SIMVASTATIN 20 MG TAB PO SCH (20:17)
[2020-05-05] MEDS: INSULIN GLARGINE 100 UNITS/ML VIAL SQ SCH (20:21)
[2020-05-05] MEDS: ZOLPIDEM TARTRATE 5 MG TAB PO PRN (21:37)
[2020-05-06] VITALS (7 sets, daily range): BP systolic 119–182; BP diastolic 74–96
[2020-05-06 04:20] LABS: BASOPHILS % 0.2 % (0.0-1.0); EOSINOPHILS % 0.1 % (0.0-6.0); HEMATOCRIT 34.8 % (34.2-44.1); HEMOGLOBIN 11.5 g/dL (12.0-16.0); LYMPHOCYTES # (AUTO) 2.1 (1.0-3.2); LYMPHOCYTES % 17.6 % (18.0-39.1); MEAN CORPUSCULAR HEMOGLOBIN 27.6 pg (28-32); MEAN CORPUSCULAR VOLUME 83.5 fL (81-99); MONOCYTES # (AUTO) 1.4 (0.2-0.8); MONOCYTES % 12.1 % (4.4-11.3); NEUTROPHILS # (AUTO) 8.1 (2.1-6.9); NEUTROPHILS % 67.5 % (38.7-80.0); PLATELET COUNT 494 x10e3/uL (140-360); RED BLOOD COUNT 4.17 x10e6/uL (3.6-5.1); RED CELL DISTRIBUTION WIDTH 12.2 % (11.7-14.4)
[2020-05-06 04:38] LABS: ANION GAP 12.1 mmol/L (8-16); BLOOD UREA NITROGEN 24 mg/dL (7-26); BUN/CREATININE RATIO 31 (6-25); CALCIUM 8.6 mg/dL (8.4-10.2); CARBON DIOXIDE 29 mmol/L (22-29); CHLORIDE 99 mmol/L (98-107); CREATININE, SERUM 0.78 mg/dL (0.57-1.11); EST GLOMERULAR FILTRATION RATE > 60 ML/MIN (60-); GLUCOSE 205 mg/dL (74-118); MAGNESIUM 1.7 MG/DL (1.3-2.1); PHOSPHORUS 3.6 MG/DL (2.3-4.7); POTASSIUM 4.1 mmol/L (3.5-5.1); SODIUM 136 mmol/L (136-145)
[2020-05-06] MEDS: LORAZEPAM 0.5 MG TAB PO PRN (06:22)
[2020-05-06] MEDS: FAMOTIDINE 20 MG TAB PO SCH ×2 (08:30→17:15)
[2020-05-06] MEDS: INSULIN LISPRO 100 UNIT/1 ML 3ML VIAL SQ SCH ×4 (08:30→22:31)
[2020-05-06] MEDS: PREGABALIN 75 MG CAP PO SCH ×2 (08:43→21:47)
[2020-05-06] MEDS: ASCORBIC ACID 500 MG TAB PO SCH ×2 (08:43→21:47)
[2020-05-06] MEDS: ZINC SULFATE 50 MG CAP PO SCH (08:43)
[2020-05-06] MEDS: ENOXAPARIN 30 MG/0.3 ML SYR SC SCH ×2 (08:43→21:47)
[2020-05-06] MEDS: CHOLECALCIFEROL 400 UNIT TAB PO SCH (08:43)
[2020-05-06] MEDS: CARVEDILOL 12.5 MG TAB PO SCH ×2 (08:44→21:46)
[2020-05-06] MEDS ORDERED: Cholecalciferol PO (11:52)
[2020-05-06] MEDS ORDERED: ATIVAN0.5 MG PO (11:52)
[2020-05-06] MEDS ORDERED: ASCORBIC ACID500 MG PO (11:52)
[2020-05-06] MEDS ORDERED: ACETAMINOPHEN325 M1 PO (11:52)
[2020-05-06] MEDS ORDERED: Zinc Sulfate PO (11:52)
[2020-05-06] MEDS: ASPIRIN 325 MG TAB PO SCH (21:45)
[2020-05-06] MEDS: LISINOPRIL 2.5 MG TAB PO SCH (21:46)
[2020-05-06] MEDS: CLOPIDOGREL BISULFATE 75 MG TAB PO SCH (21:47)
[2020-05-06] MEDS: DULOXETINE HCL 30 MG DELAYED RELEASE PO SCH (21:47)
[2020-05-06] MEDS: ZOLPIDEM TARTRATE 5 MG TAB PO PRN (21:47)
[2020-05-06] MEDS: SIMVASTATIN 20 MG TAB PO SCH (21:47)
[2020-05-06] MEDS: INSULIN GLARGINE 100 UNITS/ML VIAL SQ SCH (21:49)
[2020-05-07] VITALS (10 sets, daily range): BP systolic 106–140; BP diastolic 62–83
[2020-05-07] MEDS: FAMOTIDINE 20 MG TAB PO SCH ×2 (08:27→17:10)
[2020-05-07] MEDS: CHOLECALCIFEROL 400 UNIT TAB PO SCH (08:28)
[2020-05-07] MEDS: CARVEDILOL 12.5 MG TAB PO SCH ×2 (08:28→20:51)
[2020-05-07] MEDS: ZINC SULFATE 50 MG CAP PO SCH (08:28)
[2020-05-07] MEDS: PREGABALIN 75 MG CAP PO SCH ×2 (08:28→20:52)
[2020-05-07] MEDS: ASCORBIC ACID 500 MG TAB PO SCH ×2 (08:28→20:52)
[2020-05-07] MEDS: ENOXAPARIN 30 MG/0.3 ML SYR SC SCH (08:28)
[2020-05-07] MEDS: INSULIN LISPRO 100 UNIT/1 ML 3ML VIAL SQ SCH ×4 (08:30→20:53)
[2020-05-07] MEDS ORDERED: LORAZEPAM 0.5 MG TAB PO ONE (08:45)
[2020-05-07] MEDS: LORAZEPAM 0.5 MG TAB PO PRN (20:40)
[2020-05-07] MEDS: ASPIRIN 325 MG TAB PO SCH (20:51)
[2020-05-07] MEDS: DULOXETINE HCL 30 MG DELAYED RELEASE PO SCH (20:51)
[2020-05-07] MEDS: LISINOPRIL 2.5 MG TAB PO SCH (20:52)
[2020-05-07] MEDS: SIMVASTATIN 20 MG TAB PO SCH (20:52)
[2020-05-07] MEDS: CLOPIDOGREL BISULFATE 75 MG TAB PO SCH (20:52)
[2020-05-07] MEDS: INSULIN GLARGINE 100 UNITS/ML VIAL SQ SCH (20:54)
[2020-05-07] MEDS: ZOLPIDEM TARTRATE 5 MG TAB PO PRN (21:20)
[2020-05-08] VITALS: BP 115/76
[2020-05-08 04:00] VITALS: BP 122/84
[2020-05-08] MEDS ORDERED: FLUCONAZOLE 100 MG TAB PO ONE (05:00)
[2020-05-08 05:02] LABS: BASOPHILS % 0.3 % (0.0-1.0); EOSINOPHILS # (AUTO) 0.2 (0.0-0.4); EOSINOPHILS % 2.1 % (0.0-6.0); HEMATOCRIT 32.9 % (34.2-44.1); HEMOGLOBIN 10.6 g/dL (12.0-16.0); LYMPHOCYTES # (AUTO) 2.9 (1.0-3.2); LYMPHOCYTES % 26.3 % (18.0-39.1); MEAN CORPUSCULAR HEMOGLOBIN 27.5 pg (28-32); MEAN CORPUSCULAR HGB CONC 32.2 g/dL (31-35); MEAN CORPUSCULAR VOLUME 85.5 fL (81-99); MONOCYTES # (AUTO) 1.3 (0.2-0.8); MONOCYTES % 11.7 % (4.4-11.3); NEUTROPHILS # (AUTO) 6.2 (2.1-6.9); NEUTROPHILS % 55.7 % (38.7-80.0); PLATELET COUNT 429 x10e3/uL (140-360); RED BLOOD COUNT 3.85 x10e6/uL (3.6-5.1); RED CELL DISTRIBUTION WIDTH 12.5 % (11.7-14.4)
[2020-05-08 05:27] LABS: ANION GAP 12.5 mmol/L (8-16); BLOOD UREA NITROGEN 18 mg/dL (7-26); BUN/CREATININE RATIO 24 (6-25); CALCIUM 8.3 mg/dL (8.4-10.2); CARBON DIOXIDE 29 mmol/L (22-29); CHLORIDE 99 mmol/L (98-107); CREATININE, SERUM 0.74 mg/dL (0.57-1.11); EST GLOMERULAR FILTRATION RATE > 60 ML/MIN (60-); GLUCOSE 310 mg/dL (74-118); MAGNESIUM 1.7 MG/DL (1.3-2.1); PHOSPHORUS 3.6 MG/DL (2.3-4.7); POTASSIUM 4.5 mmol/L (3.5-5.1); SODIUM 136 mmol/L (136-145)
[2020-05-08] MEDS: INSULIN LISPRO 100 UNIT/1 ML 3ML VIAL SQ SCH ×2 (07:30→12:15)
[2020-05-08] MEDS ORDERED: MAGNESIUM SULF 1GRAM/DEXTROSE 100 ML IV ONE (07:30)
[2020-05-08] MEDS: FAMOTIDINE 20 MG TAB PO SCH (07:30)
[2020-05-08] MEDS ORDERED: SODIUM CHLORIDE 0.9% 250ML 250 ML ONE (07:58)
[2020-05-08] MEDS ORDERED: TRAMADOL HCL 50 MG TAB PO PRN (08:00)
[2020-05-08 08:33] VITALS: BP 134/81
[2020-05-08] MEDS: PREGABALIN 75 MG CAP PO SCH (08:45)
[2020-05-08] MEDS: ZINC SULFATE 50 MG CAP PO SCH (08:45)
[2020-05-08] MEDS: ASCORBIC ACID 500 MG TAB PO SCH (08:45)
[2020-05-08] MEDS: CHOLECALCIFEROL 400 UNIT TAB PO SCH (08:45)
[2020-05-08] MEDS: CARVEDILOL 12.5 MG TAB PO SCH (08:45)
[2020-05-08] MEDS: LORAZEPAM 0.5 MG TAB PO PRN (08:46)
[2020-05-08 09:00] VITALS: BP 134/81
[2020-05-08 12:09] VITALS: BP 144/78
[2020-05-08] MEDS ORDERED: DULOXETINE HCL 30 MG DELAYED RELEASE PO SCH (14:00)
[2020-05-08] MEDS ORDERED: BUSPIRONE HCL 5 MG TAB PO SCH (15:00)
[2020-05-08] MEDS ORDERED: BUSPIRONE HCL5 MG PO (15:03)
[2020-05-08] MEDS ORDERED: ONDANSETRON HCL 4 MG ORAL DISINTEGRATING TAB PO PRN (15:30)
[2020-05-08 16:00] VITALS: BP 132/75
== END 2020-05-08 16:11 | disposition home or self-care (01) | DRG 177 ==
LOC: ER 09:34 → ERHOLD 09:59 → ER 17:10 → IMCU 17:19
PROVIDERS: ADMIT Internal Medicine; ATTEND Internal Medicine
PROC: 3E0333Z Introduction of Anti-inflammatory into Peripheral Vein, Percutaneous Approach (ICD-10-PCS; principal; 2020-04-26)
PROC: XW033E5 Introduction of Remdesivir Anti-infective into Peripheral Vein, Percutaneous Approach, New Technology Group 5 (ICD-10-PCS; principal; 2020-04-26)
PROC: 02HV33Z Insertion of Infusion Device into Superior Vena Cava, Percutaneous Approach (ICD-10-PCS; 2020-04-28)
PROC: B548ZZA Ultrasonography of Superior Vena Cava, Guidance (ICD-10-PCS; 2020-04-28)
DX: U07.1 COVID-19 (principal); J12.82 Pneumonia due to coronavirus disease 2019; J96.01 Acute respiratory failure with hypoxia; F33.1 Major depressive disorder, recurrent, moderate; I10 Essential (primary) hypertension; E11.65 Type 2 diabetes mellitus with hyperglycemia; E66.9 Obesity, unspecified; F41.9 Anxiety disorder, unspecified; B37.3 Candidiasis of vulva and vagina; E11.42 Type 2 diabetes mellitus with diabetic polyneuropathy; E78.5 Hyperlipidemia, unspecified; Z95.5 Presence of coronary angioplasty implant and graft; Z68.34 Body mass index [BMI] 34.0-34.9, adult; Z79.4 Long term (current) use of insulin
CPT/HCPCS: 36415; 36569; 71045; 80048; 80053; 82550; 82553; 82948; 83735; 83880; 84100; 84484; 85025; 85610; 85730; 87400; 93005; 96360; 96372; 97139; 99251; 99284; J0360; J0456; J0696; J1100; J1650; J1815; J2060; J3475; J7050; U0002

== ENCOUNTER 2020-11-02 14:17 | Emergency (ER) | payer OTHER ==
[~2020-11-02] VITALS: Ht 312.4 cm; Wt 87.5 kg
[~2020-11-02 14:17] MED LIST changes: +ACETAMINOPHEN325 M1 PO; +ASCORBIC ACID500 MG PO; +ATIVAN0.5 MG PO; +BUSPIRONE HCL5 MG PO; +CARVEDILOL12.5 MG PO; +CYMBALTA30 MG; +Cholecalciferol PO; +LANTUS 3ML100 UNITS/ SQ; +LISINOPRIL5 MG PO; +Zinc Sulfate PO
[2020-11-02] MEDS ORDERED: SODIUM CHLORIDE 0.9% 1000ML 1,000 ML IV STA (14:28)
[2020-11-02 14:47] LABS: BASOPHILS # (AUTO) 0.1 (0.0-0.1); BASOPHILS % 0.9 % (0.0-1.0); EOSINOPHILS # (AUTO) 0.1 (0.0-0.4); EOSINOPHILS % 1.5 % (0.0-6.0); HEMATOCRIT 41.4 % (34.2-44.1); HEMOGLOBIN 13.8 g/dL (12.0-16.0); LYMPHOCYTES # (AUTO) 2.4 (1.0-3.2); LYMPHOCYTES % 28.5 % (18.0-39.1); MEAN CORPUSCULAR HEMOGLOBIN 27.9 pg (28-32); MEAN CORPUSCULAR HGB CONC 33.3 g/dL (31-35); MEAN CORPUSCULAR VOLUME 83.6 fL (81-99); MONOCYTES # (AUTO) 0.4 (0.2-0.8); MONOCYTES % 4.7 % (4.4-11.3); NEUTROPHILS # (AUTO) 5.5 (2.1-6.9); NEUTROPHILS % 64.2 % (38.7-80.0); PLATELET COUNT 348 x10e3/uL (140-360); RED BLOOD COUNT 4.95 x10e6/uL (3.6-5.1); RED CELL DISTRIBUTION WIDTH 12.1 % (11.7-14.4)
[2020-11-02 15:10] LABS: ALBUMIN 3.9 g/dL (3.5-5.0); ALBUMIN/GLOBULIN RATIO 1.1 (0.8-2.0); ANION GAP 19.4 mmol/L (8-16); CALCIUM 10.1 mg/dL (8.4-10.2); CREATININE, SERUM 1.01 mg/dL (0.57-1.11); POTASSIUM 4.4 mmol/L (3.5-5.1)
[2020-11-02 15:17] LABS: CREATINE KINASE MB 1.7 ng/mL (0-5.0)
== END 2020-11-02 16:39 | disposition home or self-care (01) ==
LOC: ER 15:42
DX: B34.9 Viral infection, unspecified (principal); E11.9 Type 2 diabetes mellitus without complications; I10 Essential (primary) hypertension; R55 Syncope and collapse; Z20.822 Contact with and (suspected) exposure to COVID-19; Z86.16 Personal history of COVID-19
CPT/HCPCS: 36415; 70450; 71046; 80053; 82550; 82553; 84484; 85025; 93005; 99284; J7030; U0002

== ENCOUNTER 2022-02-21 18:00 | Emergency (ER) | payer OTHER ==
[~2022-02-21] VITALS: Ht 160 cm; Wt 87.5 kg
[2022-02-21 18:45] LABS: BASOPHILS % 0.4 % (0.0-1.0); EOSINOPHILS # (AUTO) 0.1 (0.0-0.4); EOSINOPHILS % 1.5 % (0.0-6.0); HEMATOCRIT 35.1 % (34.2-44.1); LYMPHOCYTES # (AUTO) 3.5 (1.0-3.2); LYMPHOCYTES % 38.4 % (18.0-39.1); MEAN CORPUSCULAR HEMOGLOBIN 29.5 pg (28-32); MEAN CORPUSCULAR HGB CONC 34.2 g/dL (31-35); MEAN CORPUSCULAR VOLUME 86.2 fL (81-99); MONOCYTES # (AUTO) 0.6 (0.2-0.8); MONOCYTES % 6.5 % (4.4-11.3); NEUTROPHILS # (AUTO) 4.8 (2.1-6.9); NEUTROPHILS % 52.9 % (38.7-80.0); PLATELET COUNT 294 x10e3/uL (140-360); RED BLOOD COUNT 4.07 x10e6/uL (3.6-5.1); RED CELL DISTRIBUTION WIDTH 11.5 % (11.7-14.4)
[2022-02-21 19:07] LABS: ALBUMIN 3.5 g/dL (3.5-5.0); ALBUMIN/GLOBULIN RATIO 0.9 (0.8-2.0); CALCIUM 9.2 mg/dL (8.4-10.2); CREATININE, SERUM 1.44 mg/dL (0.57-1.11)
[2022-02-21 19:15] LABS: CREATINE KINASE MB 1.2 ng/mL (0-5.0)
[2022-02-21] MEDS ORDERED: INSULIN REGULAR, HUMAN 100 UNIT/1 ML SQ ONE (19:15)
[2022-02-21] MEDS ORDERED: SODIUM CHLORIDE 0.9% 1000ML 1,000 ML IV ONE (19:15)
[2022-02-21 20:45] VITALS: BP 130/71
== END 2022-02-21 20:46 | disposition home or self-care (01) ==
LOC: ER 18:07
DX: S06.0X1A Concussion with loss of consciousness of 30 minutes or less, initial encounter (principal); R55 Syncope and collapse; S93.691A Other sprain of right foot, initial encounter; W01.0XXA Fall on same level from slipping, tripping and stumbling without subsequent striking against object, initial encounter; Y93.01 Activity, walking, marching and hiking; Y92.89 Other specified places as the place of occurrence of the external cause; E11.65 Type 2 diabetes mellitus with hyperglycemia; E11.40 Type 2 diabetes mellitus with diabetic neuropathy, unspecified; I10 Essential (primary) hypertension
CPT/HCPCS: 36415; 70450; 71045; 73630; 80053; 82550; 82553; 82948; 83880; 84484; 85025; 85379; 93005; 99284; J1817; J7030